=== PATIENT | female | born 1985 | race Caucasian/White ===

== ENCOUNTER 2019-09-03 16:53 | Emergency (ER) | payer BC, SELFPAY ==
[2019-09-03 17:15] VITALS: BP 135/77; PULSE 93; RESP 18; TEMP 36.9; O2SAT 99
--- NOTE | 2019-09-03 17:36 | ED.EYEPROB ---
HPI - Eye Problem General Chief complaint: Eye Problems Stated complaint: left eye red and swollen Time Seen by Provider: 09/03/19 17:36 Source: patient and RN notes reviewed Mode of arrival: ambulatory Limitations: no limitations History of Present Illness chief complaint: eye redness Related Data Home Medications Medication Instructions Recorded Confirmed Control 09/03/19 Allergies Allergy/AdvReac Type Severity Reaction Status Date / Time No Known Allergies Allergy Verified 09/03/19 17:24 Review of Systems Review of Systems: Narrative: CONSTITUTIONAL: Denies malaise, chills, sweats, or fever. EYES: Denies visual changes, redness, or discharge. ENT: Denies rhinorrhea, congestion, sinus pain, otalgia or sore throat. CARDIOVASCULAR: Denies chest pain, palpitations, or edema. RESPIRATORY: Denies cough or dyspnea. GASTROINTESTINAL: Denies abdominal pain, nausea, vomiting, diarrhea, bloody, or mucous stools. GENITOURINARY: Denies dysuria or hematuria. SKIN: Denies rash or itching. MUSCULOSKELETAL: Denies back pain, joint pain, or myalgia. NEUROLOGIC: Denies numbness, weakness, or headache. PSYCHIATRIC: Denies anxiety or depression. All systems reviewed & are unremarkable except as noted in HPI and below PMFSH Comments At time of signature, agree with nursing past medical, surgical, social and family history. There is no relevant family history pertinent to the presenting complaint Exam Narrative: Exam Narrative: GENERAL: Well-appearing, well-nourished, and in no acute distress. HEAD: Normocephalic, atraumatic. EYES: PERRLA, conjunctivae clear, and EOMI. No nystagmus. ENT: Nares clear, turbinates pink, no rhinorrhea or epistaxis. Mucous membranes moist. TM pearly saldaña with sharp light reflex bilaterally; no tragal tenderness. Oropharynx without erythema or lesions. Tonsils not enlarged and without exudate. NECK: Supple. No lymphadenopathy. No jugular venous distension, thyromegaly, or carotid bruits. Carotids were easily palpable bilaterally. CHEST: No respiratory distress. Clear to auscultation. No bony deformities, no asymmetry. Speaks in full sentences. HEART: Regular rate and rhythm. No murmur heard. Normal peripheral pulses. ABDOMEN: Soft, nontender, nondistended, normal active bowel sounds, no palpable masses. EXTREMITIES: Normal range of motion. No edema. Normal strength and sensation. SKIN: Warm, dry, no rash. NEURO: Alert and oriented x3. No focal deficits. Cranial nerves II through XII grossly intact PSYCH: Normal mood and affect Course Course Emergency Course: Patient is aware of diagnosis, understands and agrees to treatment plan. Anticipatory guidance given. Patient agrees to follow-up as directed and is aware of reasons to seek care at the emergency department. Portions of this record may have been created with voice recognition software Vital Signs Vital signs: Vital Signs Temperature 98.4 F 09/03/19 17:15 Pulse Rate 93 09/03/19 17:15 Respiratory Rate 18 09/03/19 17:15 Blood Pressure 135/77 09/03/19 17:15 Pulse Oximetry 99 09/03/19 17:15 Temperature 98.4 F 09/03/19 17:15 Pulse Rate 93 09/03/19 17:15 Respiratory Rate 18 09/03/19 17:15 Blood Pressure 135/77 09/03/19 17:15 Pulse Oximetry 99 09/03/19 17:15 Reviewed. Patient has been instructed to follow up with her primary care provider within the next week regarding her elevated blood pressure today. MDM - Eye Problem MDM Narrative Medical decision making narrative: Consideration of the following conditions may be warranted for the presenting problem, they are not final diagnoses: Bacterial conjunctivitis, allergic conjunctivitis, viral conjunctivitis, foreign body, blepharitis, chalazion, hordeolum, corneal abrasion. Exam findings show no acute concerns or changes; patient is non-toxic appearing and is in no distress. Patient is appropriate for outpatient treatment and follow-up. Critical Care Time
== END 2019-09-03 17:50 | disposition home or self-care (01) ==
PROVIDERS: Emergency Provider Nurse Practitioner
DX: H10.89 Other conjunctivitis (principal); R03.0 Elevated blood-pressure reading, without diagnosis of hypertension
CPT/HCPCS: 99213; G0463

== ENCOUNTER 2023-02-03 10:40 | Emergency (ER) | payer BC, SELFPAY ==
--- NOTE | 2023-02-03 10:44 | ED.ABDPAIN ---
HPI - Abdominal Pain General Chief Complaint: Abdominal Pain Stated Complaint: abdo pain/nausea/diarrhea Time Seen by Provider: 02/03/23 10:50 Source: patient Mode of arrival: ambulatory Limitations: no limitations History of Present Illness HPI narrative: Cassandra is a 37-year-old female patient presenting to clinic today with complaints abdominal discomfort, nausea, and diarrhea x2 days. She denies any fever or chills. States she has had exposure to COVID however she tested yesterday and she was negative. Denies any URI symptoms. Reports that she just started a colon cleanse at the beginning of this week. Last diarrhea was 730 this morning. Vomited twice yesterday. No history of constipation. Denies any urinary symptoms. Last menstrual period was 3 weeks ago. She is passing gas. Related Data Home Medications Medication Instructions Recorded Confirmed norethindrone 1 mg-ethinyl 1 tablet PO DAILY 02/03/23 02/03/23 estradiol 10 mcg (24)-iron 10 mcg(2) tablet (Lo Loestrin Fe) Allergies Allergy/AdvReac Type Severity Reaction Status Date / Time No Known Allergies Allergy Verified 02/03/23 11:00 Review of Systems Review of Systems: Pertinent positives per HPI. Patient denies any fever, chills, rash, headache, visual changes, dizziness, cough, runny nose, sore throat, shortness of breath, chest pain, palpitations, constipation, or any urinary issues. PMFSH Comments At the time of my signature, I reviewed and agree with the nursing past medical, surgical, social, and family history. There is no relevant family history pertinent to the patient complaint. Exam Narrative: General: Well-developed, well nourished, in no apparent distress. Head: Normocephalic, atraumatic. Cardio: Regular rate and rhythm, s1 and s2 normal, no murmur appreciated. Resp: Clear to auscultation bilaterally, no rhonchi, rales, wheezing or rubs. Abdomen: Soft, pliable, bowel sounds present in all quadrants, generalized tender to palpation but more so tender to the mid epigastrium, no organomegly, no CVAT tenderness. Course Course Emergency Course: Portions of this record may have been created with voice recognition software. Level of Care: Express Care Visit Vital Signs Vital signs: Vital signs reviewed MDM - Abdominal Pain MDM Narrative Medical decision making narrative: At the time of visit patient is resting comfortably on the exam table. I suspect patient has gastroenteritis. Prescription for Levsin and Zofran was sent to the pharmacy and supportive measures were discussed with the patient she voiced understanding discharge instructions and agrees to treatment plan. Differential Diagnosis Differential diagnosis: Likely abdominal pain, acute appendicitis, calculus of kidney, constipation, diverticulitis, endometriosis, gastroenteritis, pancreatitis and small bowel obstruction Discharge Plan Discharge Clinical Impression: Gastroenteritis Patient Disposition: Home, Self-Care Condition: Stable Instructions: Antibiotic Form, Gastroenteritis (ED) Additional Instructions: Take prescription medications only as prescribed-Zofran for nausea and Levsin for abdominal cramping Increase fluids and stay well hydrated Tylenol/motrin for pain/fever BRAT diet for diarrhea Clear liquids x 24 hours then advance as tolerated for nausea/vomiting Go to the ED if you develop a worsening in your condition- high fever not controlled by Tylenol or Motrin, dehydration, weakness, lethargy, shortness of breath, or chest pain. Follow up with your PCP in 3-5 days if symptoms persist. Prescriptions: New hyoscyamine sulfate [Levsin] 0.125 mg tablet 0.125 mg PO QID PRN (Reason: dyspepsia) 3 Days Qty: 12 0RF ondansetron 4 mg tablet,disintegrating 4 mg PO Q6H PRN (Reason: nausea and vomiting) 3 Days Qty: 12 0RF No Action Lo Loestrin Fe 1 mg-10 mcg (24)/10 mcg (2) tablet 1 tablet PO DAILY Follow-up/R
[2023-02-03 10:45] VITALS: BP 146/85; PULSE 98; RESP 16; TEMP 36.7; O2SAT 98
== END 2023-02-03 11:05 | disposition home or self-care (01) ==
PROVIDERS: Emergency Provider Nurse Practitioner Family
DX: K52.9 Noninfective gastroenteritis and colitis, unspecified (principal)
CPT/HCPCS: 99213; G0463

== ENCOUNTER 2025-01-03 11:47 | Emergency (ER) | payer SELFPAY ==
--- NOTE | ~2025-01-03 | XR_ITS ---
Examination: XR tibia fibula LT 2V Clinical History: garcia pain x3 days. New exercise. R/o stress fx Comparison: None Technique: 2 views left tibia and fibula Findings/impression: 1. No fracture or other acute abnormality identified. Reviewed, dictated and finalized at location R.
[2025-01-03 11:55] VITALS: BP 124/62; PULSE 104; RESP 16; TEMP 36.8; O2SAT 98
--- OUTSIDE RECORDS SUMMARY | 2025-01-03 12:31 | XMS_ITS | Encounter Summary ---
Author Organization [facility] Address [address] [place] [address] Phone Care Team Providers Care Armament Installer Name Role Phone Fam Carpenter MD Primary Care Provider [phone] Reason for Visit * Reason Comments Medication Refill Encounter Details Date Type Department Care Team (Late st Contact Info) Description 04/26/2021 Refill [facility] - Family Medicine [facility] [address] [place] [id number] Fam Carpenter MD [address] [place] [address] Medication Refill Social History Tobacco Use Types Packs/Day Years Used Date Smoking Tobacco: Former Cigarettes Smokeless Tobacco: Never Alcohol Use Standard Drinks/Week Comments Yes 0 (1 standard drink = 0.6 oz pur e alcohol) occasional PHQ-2 Answer Date Recorded Total Score - Questions 1-9 0 080 09/2019 Education Answer Date Recorded What is the highest level of school you have completed or the highest degree you have received? Associate degree: occupational, technical, or vocational program 04/27/2020 Comments No Sex and Gender Information Value Date Recorded Sex Assigned at Not on file Legal Sex Female 11:27 PM CDT Gender Identity Not on file Sexual Orientation Not on file documented as of this encounter Miscellaneous Notes * Telephone Encounter - Ana Maria Early RN - 04/26/2021 2:13 PM CST Medication failed the protocol, provider to review and approve the medication order if appropriate. Requested Prescriptions Pending Prescriptions Disp Refills levETIRAcetam (KEPPRA) 500 MG Tablet [Pharmacy Med Name: levETIRAcetam 500 MG Oral Tablet] 60 Tablet 0 Sig: Take 1 tablet by mouth twice daily Not Delegated - Anticonvulsants Excluding Benzodiazepines Protocol Failed - 04/26/2021 5:31 AM Failed - This refill cannot be delegated Passed - Visit with relevant provider in past 12 months or upcoming 90 days Recent Visits Date Type Provider Dept 04/27/20 Telemedicine Fam Carpenter MD [facility] Showing recent visits within past 365 days and meeting all other requirements Future Appointments No visits were found meeting these conditions. Showing future appointments within next 90 days and meeting all other requirements ER OPERATOR documented in this encounter Plan of Treatment Not on file documented as of this encounter Visit Diagnoses Diagnosis Nonintractable epilepsy without status epilepticus, unspecified epilepsy type documented in this encounter Additional Health Concerns Assessment Noted Time PHQ-9 Depression Total Score: 0 10/25/19 20 8:00 AM CDT documented as of this encounter Care Teams Armament Installer Relationship Specialty Start Date End Date Fam Carpenter MD PCP - General Family Medicine 10/25/19 10/05/21 documented as of this encounter
--- OUTSIDE RECORDS SUMMARY | 2025-01-03 12:31 | XMS_ITS | Encounter Summary ---
Author Organization [facility] Address [address] [place] [address] Phone Care Team Providers Care Fine Hairer Name Role Phone Fam Carpenter MD Primary Care Provider [phone] Reason for Visit * Reason Comments Medication Refill Encounter Details Date Type Department Care Team (Late st Contact Info) Description 06/26/2021 Refill [facility] - Family Medicine [facility] [address] [place] [id number] Fam Carpenter MD [address] [place] [address] Medication Refill Social History Tobacco Use Types Packs/Day Years Used Date Smoking Tobacco: Former Cigarettes Smokeless Tobacco: Never Alcohol Use Standard Drinks/Week Comments Yes 0 (1 standard drink = 0.6 oz pur e alcohol) occasional PHQ-2 Answer Date Recorded Total Score - Questions 1-9 0 09/2019 Education Answer Date Recorded What is [...] Encounter - Ana Maria Early RN - 06/28/2021 8:15 AM CDT I was going to deny these medications since patient has not been seen in over a year and she No Showed her last appointment in February however, I did not want to deny the Keppra if she needs it. Medication failed the protocol, provider to review and approve the medication order if appropriate. Requested Prescriptions Pending Prescriptions Disp Refills levETIRAcetam (KEPPRA) 500 MG Tablet [Pharmacy Med Name: levETIRAcetam 500 MG Oral Tablet] 60 Tablet 0 Sig: Take 1 tablet by mouth twice daily Not Delegated - Anticonvulsants Excluding Benzodiazepines Protocol Failed - 06/26/2021 5:30 AM Failed - This refill cannot be delegated Failed - Visit with relevant provider in past 12 months or upcoming 90 days Recent Visits No visits were found meeting these conditions. Showing recent visits within past 365 days and meeting all other requirements Future Appointments No visits were found meeting these conditions. Showing future appointments within next 90 days and meeting all other requirements gabapentin (NEURONTIN) 100 MG Capsule [Pharmacy Med Name: Gabapentin 100 MG Oral Capsule] 180 Capsule 0 Sig: TAKE 2 CAPSULES BY MOUTH THREE TIMES DAILY Not Delegated - Anticonvulsants Excluding Benzodiazepines Protocol Failed - 06/26/2021 5:30 AM Failed - This refill cannot be delegated Failed - Visit with relevant provider in past 12 months or upcoming 90 days Recent Visits No visits were found meeting these conditions. Showing recent visits within past 365 days and meeting all other requirements Future Appointments No visits were found meeting these conditions. Showing future appointments within next 90 days and meeting all other requirements documented in this encounter Plan of Treatment Not on file documented as of this encounter Visit Diagnoses Diagnosis Nonintractable epilepsy without status epilepticus, unspecified epilepsy type documented in this encounter Additional Health Concerns Assessment Noted Time PHQ-9 Depression Total Score: 0 10/25/19 20 8:00 AM CDT documented as of this encounter Care Teams Fine Hairer Relationship Specialty Start Date End Date Fam Carpenter MD PCP - General Family Medicine 10/25/19 10/05/21 documented as of this encounter
--- OUTSIDE RECORDS SUMMARY | 2025-01-03 12:31 | XMS_ITS | Clinical Summary ---
Author Organization [facility] Address [address] [place] [address] Phone Care Team Providers Care Abrasive Grinder Name Role Phone Unavailable Primary Care Provider Unavailabl e Allergies No known active allergies Medications Multiple Vitamins-Mineral s (MULTIVITAMIN PO) Take by mouth. Active Norethin-Eth Estrad-Fe Biphas 1 MG-10 MCG / 10 MCG Tablet Take by mouth. Active VITAMIN D POIndications:Vi sit for annual health examination (Adult) Take by mouth. Active gabapentin (NEURONTIN) 100 MG Capsule Take 2 Capsules by mouth 3 times daily. 180 Capsule 2 Active levETIRAcetam (KEPPRA) 500 MG TabletIndication s:Nonintractable epilepsy without status epilepticus, unspecified epilepsy type Take 1 Tablet by mouth 2 times daily. No further refills until seen, not seen in over one year 60 Tablet 2 Active Active Problems Problem Noted Date Diagnosed Date Family history of other cardiovascular diseases 04/11/2019 Overview (10/25/2019): Note: mom thyroid disorder Note: father [place] Epileptic seizure 05/16/2016 Idiopathic generalized epilepsy 10/05/2015 Fibrocystic disease of breast 02/28/2014 Overview (10/25/2019): Note: Unchanged Immunizations Immunization Administration Dates Next Due TDAP Vaccine 09/27/2015 Family History Medical History Relation Name Comments No Known Problems Brother cali Diabetes Father Cancer Maternal Grandfather throat Dementia Maternal Grandfather Chronic Obstructive Pulmonary Disease Maternal Grandmo ther Heart Disease Maternal Grandmother Bladder cancer Mother Heart Attack Paternal Grandfather Stroke Paternal Grandfather Alzheimer's Disease Paternal Grandmother No Known Problems Sister 1 nina No Known Problems Sister 2 jaimee Relation Name Status Comments Brother cali Alive Father Alive Maternal Grandfather Maternal Grandmother Mother Alive Paternal Grandfather Paternal Grandmother Alive Sister 1 nina Alive Sister 2 jaimee Alive Social History Tobacco Use Types Packs/Day Years Used Date Smoking Tobacco: Former Cigarettes Smokeless Tobacco: Never Tobacco Cessation:Counseling Given: No Alcohol Use Standard Drinks/Week Comments Yes 0 [...] on file Sexual Orientation Not on file Last Filed Vital Signs Vital Sign Reading Time Taken Comments Blood Pressure 110/64 12/25/2019 9:57 AM CDT Pulse 88 12/25/2019 9:57 AM CDT Temperature 36.4 C (97.6 F) 12/25/2019 9:57 AM CDT Respiratory Rate 16 12/25/2019 9:57 AM CDT Oxygen Saturation 98% 12/25/2019 9:57 AM CDT Inhaled Oxygen Concentration - - Weight 70.1 kg (154 lb 9.6 oz) 12/25/2019 9:57 A M CDT Height 160 cm (5' 3) 12/25/2019 9:57 AM CDT Body Mass Index 27.39 12/25/2019 9:57 AM CDT Plan of Treatment Health Maintenance Due Date Last Done Comments Hepatitis C Virus (HCV) Screening 1985 Hepatitis B Immunization (1 of 3 - 19+ 3-dose series) 2004 Influenza Immunization (#1) 2024 SARS-COV-2 Immunization () 11/18/2024 Pap Smear 06/11/2026 06/12/2023, 05/19, 06/02/2021, Additional history exists Cervical Cancer Screening (CCS) 06/11/2028 HPV/Cotest 06/11/2028 06/12/2023, 05/19, 06/02/2021 Respiratory Syncytial Virus (RSV) Immunization (Adult) (1 - 1-dose 75+ series) 2060 Human Papillomavirus (HPV) Immunization Completed 01/27/2009, 10/06/2008, 07/18/2008 DTaP/Tdap/Td Immunization Discontinued 09/27/2015 Meningococcal Immunization (ACWY) Aged Out No longer eligible based on patient's age to complete this topic Pneumococcal Immunization Combined Aged Out No longer eligible based on patient's age to complete this topic Rotavirus Immunization Aged Out No lo nger eligible based on patient's age to complete this topic Procedures Procedure Name Priority Date/Time Associated Diagnosis Comments HUMAN PAPILLOMA VIRUS (HPV) 06/12/2023 12:00 AM CDT PATHOLOGY CYTOLOGY BEHAVIOR CLINICIAN 06/12/2023 12:00 AM CDT from Last 3 Months or Most Recently Relevant to Health Maintenance Results * PATHOLOGY CYTOLOGY BEHAVIOR CLINICIAN (06/12/2023 12:00 AM CDT) 06/12/2023 us Provider Scan PATHOLOGY/CYTOLOGY ORDERABLES Fi nal Result Performing Organization Address City/[facility]/ZIP Co de Phone Number SCAN * HUMAN PAPILLOMA VIRUS (HPV) (06/12/2023 12:00 AM CDT) 06/12/2023 us Provider Scan LAB SEND OUTS Final Result SCAN from Last 3 Months or Most Recently Relevant to Health Maintenance Insurance MEDICAID [place]
--- OUTSIDE RECORDS SUMMARY | 2025-01-03 12:31 | XMS_ITS | Encounter Summary ---
Author Organization [facility] Address [address] [place] [address] Phone Care Team Providers Care Medical Detail Representative Name Role Phone Fam Carpenter MD Primary Care Provider Reason for Visit * Reason Comments Medication Refill Encounter Details Date Type Department Care Team (Late st Contact Info) Description 05/18/2020 Refill [facility] - Family Medicine [facility] [address] [place] [address] Fam Carpenter MD [address] [place] [address] Medication Refill Social History Tobacco Use Types Packs/Day Years Used Date Smoking Tobacco: Former Cigarettes Smokeless Tobacco: Never Alcohol Use Standard Drinks/Week Comments Yes 0 (1 standard drink = 0.6 oz pur e alcohol) occasional PHQ-2 Answer Date Recorded Total Score - Questions 1-9 0 0809/2019 Education Answer Date Recorded What is the highest level of school you have completed or the highest degree you have received? Associate degree: occupational, technical, or vocational program 04/27/2020 Comments No Sex and Gender Information Value Date Recorded Sex Assigned at Not on file Legal Sex Female 11:27 PM CDT Gender Identity Not on file Sexual Orientation Not on file COVID-19 Exposure Response Date Recorded In the last month, have you been in contact with someone who was confirmed or suspected to have Coronavirus / COVID-19? Yes 04/27/2020 8:23 AM SECOND RIGGER documented as of this encounter Miscellaneous Notes * Telephone Encounter - Ana Maria Early RN - 05/19/2020 9:36 AM CST Per [place] PDMP, last filled 30 days 03/09/20 Per nursing clinical judgement, provider to review and approve the medication(s) order(s) if appropriate. Requested Prescriptions Pending Prescriptions Disp Refills levETIRAcetam (KEPPRA) 500 MG Tablet [Pharmacy Med Name: levETIRAcetam 500 MG Oral Tablet] 60 Tablet 0 Sig: Take 1 tablet by mouth twice daily Neurology: Anticonvulsants Passed - 05/19/2020 9:36 AM Passed - Valid encounter within last 12 months Past Office Visits Recent Outpatient Visits 3 weeks ago Neuropathy involving both lower extremities [facility] - Fam Tang MD 4 months ago Neuropathy involving both lower extremities [facility] - Fam Tang MD 6 months ago Visit for annual health examination (Adult) [facility] - Fam Tang MD 4 years ago Vasovagal attack [facility] Rosette Stevenson PAC 5 years ago Loss of consciousness [facility] Rosette Stevenson PAC Upcoming Appointments [facility] - Recent and Past Visits Recent Visits Date Type Provider Dept 04/27/20 Telemedicine Fam Carpenter MD [facility] 12/25/19 Office Visit Fam Carpenter MD [facility] 10/25/19 Office Visit Fam Carpenter MD [facility] [place] Showing recent visits within past 460 days with a meds authorizing provider and meeting all other requirements Future Appointments No visits were found meeting these conditions. Showing future appointments within next 90 days with a meds authorizing provider and meeting all other requirements [place] RIGGER documented in this encounter Plan of Treatment Not on file documented as of this encounter Visit Diagnoses Diagnosis Nonintractable epilepsy without status epilepticus, unspecified epilepsy type documented in this encounter Additional Health Concerns Assessment Noted Time PHQ-9 Depression Total Score: 0 10/25/19 20 8:00 AM CDT documented as of this encounter Care Teams Medical Detail Representative Relationship Specialty Start Date End Date Fam Carpenter MD PCP - General Family Medicine 10/25/19 10/05/21 documented as of this encounter
--- OUTSIDE RECORDS SUMMARY | 2025-01-03 12:31 | XMS_ITS | Clinical Summary ---
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 Acti ve norethindrone-e.e stradiol-iron 1 mg-10 mcg (24)/10 mcg (2) tablet Take by mouth. Active ferrous sulfate 325 mg (65 mg of elemental iron) tabletIndications :Iron Deficiency Anemia Take 1 tablet (325 mg total) by mouth daily with breakfast Active meloxicam (MOBIC) 15 mg tabletIndications :Osteoarthritis of right foot, unspecified osteoarthritis type,Right foot sprain, initial encounter Take 1 tablet (15 mg total) by mouth daily P.r.n. pain and swelling. Take with food. Collaborating physician Aydin Younger MD 30 tablet 05/31/19 24 Active ibuprofen (ADVIL,MOTRIN) 800 mg tablet Take 1 tablet (800 mg total) by mouth 3 (three) times a day as needed for pain. Take with food. 30 tablet 10/05/19 18 025 Discontin ued(Thera py completed ) HYDROcodone-aceta minophen (NORCO) 5-325 mg per tabletIndications :Pain Take 1-2 tablets by mouth every 6 (six) hours as needed for pain (1 tablet for mild to moderate pain or 2 tablets for severe pain). 12 tablet 10/05/19 18 025 Discontin ued(Thera py completed ) levETIRAcetam (KEPPRA) 500 mg tablet 09/15/19 18 Discontin ued(Thera py completed ) ondansetron ODT (ZOFRAN-ODT) 4 mg disintegrating tablet Dissolve 1 tablet oral every 4 hours as needed for nausea or vomiting. 15 tablet 05/03/19 21 Discontin ued(Alter miriam therapy) gabapentin (NEURONTIN) 100 mg capsule 12/29/19 21 Discontin ued(Thera py completed ) ondansetron ODT (ZOFRAN-ODT) 4 mg disintegrating tablet Dissolve 1 tablet oral every 4 hours as needed for nausea or vomiting. 15 tablet 01/14/20 21 Discontin ued(Alter miriam therapy) naproxen (NAPROSYN) 500 mg tabletIndications :Nondisplaced fracture of proximal phalanx of right great toe, initial encounter for closed fracture,Contusio n of right foot, initial encounter Take 1 tablet (500 mg total) by mouth 2 (two) times a day with meals P.r.n. pain and swelling. Collaborating physician Aydin Younger MD 20 tablet 01/16/20 23 Discontin ued(Thera py completed ) traMADoL (ULTRAM) 50 mg tabletIndications :Nondisplaced fracture of proximal phalanx of right great toe, initial encounter for closed fracture,Contusio n of right foot, initial encounter Take 1 tablet (50 mg total) by mouth every 6 (six) hours P.r.n. pain not relieved by naproxen alone. Take with food. Take 500 mg to 650 mg of acetaminophen with each dose. Collaborating physician Aydin Younger MD 15 tablet 01/16/20 23 025 Discontin ued(Thera py completed ) ondansetron ODT (ZOFRAN-ODT) 4 mg disintegrating tablet Take 1 tablet (4 mg total) by mouth every 8 (eight) hours as needed for nausea or vomiting 20 tablet 12/17/19 25 025 Discontin ued(Thera py completed ) cefdinir (OMNICEF) 300 mg capsule Take 1 capsule (300 mg total) by mouth 2 (two) times a day for 5 days 10 capsule 12/20/19 25 025 Active Problems Problem Noted Date Diagnosed Date Syncope and collapse 12/17/2024 Osteoarthritis of right foot 05/31/2023 Right foot sprain, initial encounter 05/31/2023 Nondisplaced fracture of pro ximal phalanx of right great toe, initial encounter for closed fracture 01/15/2023 Overview (01/15/2023): Nondisplaced fracture involving the medial base of the great toe proximal phalanx Contusion of right foot 01/15/2023 Closed fracture of shaft of left ulna 10/09/2017 Idiopathic generalized epilepsy 10/05/2015 Encounters Date Type Department Care Team Description 12/19/2024 Documentation [facility] [address] [place] [address] Sergio Viramontes MD 12/18/2024 Documentation [facility] Warm Hand Off Program [address] [place], [place] [phone] Valery Johnson 12/17/2024 9:09 PM CDT - 12/19/2024 12:19 PM CDT Hospital Encounter [facility] IMU [address] [place] [address] Bindu Clayton MD Petters, MD Nishi Jiménez Jelena, MD Syncope and collapse (Primary Dx); Alcohol withdrawal syndrome with complication (HCC) Discharge Disposition: Discharge to home or self care 12/16/2024 3:45 PM CDT - 12/16/2024 8:00 PM CDT Emergency [facility] Emergency Department [address] [place] [address] Patricio Vallecillo MD Alcohol abuse (Primary Dx) Discharge Disposition: Discharge to home or self care 12/16/2024 3:08 PM CDT - 12/16/2024 11:59 PM CDT Hospital Encounter [facility] Emergency, Room R Discharge Disposition: Discharge to home or self care from Last 3 Months Immunizations Immunization Administration Dates Next Due HPV, Quadrivalent 01/27/2009,10/06/2008,07/19/19 09 Hep A, Ped Unspecified 09/29/2004 Tdap 09/27/2015 Medical History Medical History Date Comments Seizures (HCC) Social History Tobacco Use Types Packs/Day Years Used Date Smoking Tobacco: Former Smokeless Tobacco: Never Tobacco Cessation:Counseling Given: No Alcohol Use Standard Drinks/Week Comments Yes 10 (1 standard drink = 0.6 oz pu re alcohol) Social Connection and Isolation Panel Answer Date Recorded In a typical week, how many times do you talk on the phone with family, friends, or neighbors? More than three times a week 12/18/2024 How often do you get togethe r with friends or relatives? More than three times a week 12/18/2024 How often do you attend chur ch or shinto services? Never 12/18/2024 Do you belong to any clubs o r organizations such as scientologist groups, unions, fraternal or athletic groups, or school groups? No 12/18/2024 How often do you attend meet ings of the clubs or organizations you belong to? Never 12/18/2024 Are you , , di vorced, , never , or living with a partner? Never 12/18/2024 AUDIT-C Answer Date Recorded Q1: How often do you have a drink containing alc ohol? 2-3 times a week 12/18/2024 Q2: How many drinks containi ng alcohol do you have on a typical day when you are drinking? 5 or 6 12/18/2024 Q3: How often do you have si x or more drinks on one occasion? Weekly 12/18/2024 Overall Financial Resource Strain (CARDIA) Answe r Date Recorded How hard is it for you to pa y for the very basics like food, housing, medical care, and heating? Somewhat hard 12/18/2024 Hunger Vital Sign Answer Date Recorded Within the past 12 months, y ou worried that your food would run out before you got the money to buy more. Never true 12/19/19 25 Within the past 12 months, t he food you bought just didn't last and you didn't have money to get more. Never true 12/18/2024 PRAPARE - Transportation Answer Date Re corded In the past 12 months, has l ack of transportation kept you from medical appointments or from getting medications? No 03/2024 In the past 12 months, has l ack of transportation kept you from meetings, work, or from getting things needed for daily living? No 12/18/2024 Housing Stability Vital Sign Answer Emmanuel e Recorded In the last 12 months, was t here a time when you were not able to pay the mortgage or rent on time? No 12/18/2024 In the past 12 months, how m any times have you moved where you were living? 0 12/18/2024 At any time in the past 12 m [facility], were you homeless or living in a [place] care facility (including now)? No 12/18/2024 [facility] Utilities Answer Date Recorded In the past 12 months has th e electric, gas, oil, or water company threatened to shut off services in your home? No 12/18/2024 Personal Safety Answer Date Recorded Have you ever been in or are you currently in a harmful physical or emotional relationship or is someone making you feel afraid or unsafe? 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 Gender Identity Not on file Sexual Orientation Not on file Obstetrics History Last Filed Vital Signs Vital Sign Reading Time Taken Comments Blood Pressure 139/100 12/19/2024 7:32 AM CDT Pulse 65 12/19/2024 10:00 AM CDT Temperature 36.1 C (97 F) 12/19/2024 7:32 AM CDT Respiratory Rate 18 12/19/2024 7:32 AM CDT Oxygen Saturation 96% 12/19/2024 7:32 AM CDT Inhaled Oxygen Concentration - - Weight 57 kg (125 lb 10.6 oz) 12/18/2024 12:30 A M CDT Height 165.1 cm (5' 5) 12/18/2024 12:30 AM CDT Body Mass Index 20.91 12/18/2024 12:30 AM CDT Plan of Treatment Health Maintenance Due Date Last Done Comments Cervical Cancer Screening 1985 Depression Screening 1985 Varicella Vaccines (1 of 2 - 13+ 2-dose series) 1998 Hepatitis B Screening 10/16/2003 Regular Well Visit/Exam 18-64 10/16/2003 Influenza Vaccine (#1) 2024 DTaP/Tdap/Td Vaccine (2 - Td or Tdap) 09/26/2025 09/27/2015 HPV Vaccines Completed 01/27/2009, 10/06/2008, 07/18/2008 Hepatitis C Screening Completed 12/18/2024 Pneumococcal vaccine <65 Aged Out No longer eligible based on patient's age to complete this topic Procedures Procedure Name Priority Date/Time Associated Diagnosis Comments POCT GLUCOSE DEVICE Routine 12/19/2024 1 1:36 AM CDT EGFR Routine 12/19/2024 3:40 AM CDT DIFFERENTIAL AUTO Routine 12/19/2024 3:4 0 AM CDT CBC WITH AUTO DIFFERENTIAL Routine 12/19/2024 3:40 AM CDT COMPREHENSIVE METABOLIC PANEL Routine 12/19/2024 3:40 AM CDT TRANSTHORACIC ECHO (TTE) COMPLETE W DOPPLER/CF WO CONTRAST Routine 12/18/2024 11:20 AM CDT EEG Routine 12/18/2024 11:07 AM CDT TROPONIN T HIGH-SENSITIVITY 6-HOUR Timed 12/18/2024 4:00 AM CDT EGFR Routine 12/18/2024 2:11 AM CDT DIFFERENTIAL AUTO Routine 12/18/2024 2:1 1 AM CDT MAGNESIUM Routine 12/18/2024 2:11 AM CDT COMPREHENSIVE METABOLIC PANEL Routine 12/18/2024 2:11 AM CDT CBC WITH AUTO DIFFERENTIAL Routine 12/18/2024 2:11 AM CDT TROPONIN T HIGH-SENSITIVITY 4-HR Timed 12/18/2024 2:11 AM CDT HEPATITIS PANEL, ACUTE Routine 12/18/2024 2:[address] CHEST PE ABDOMEN PELVIS W CONTRAST ED Urgent/IP Urgent 12/18/2024 1:12 AM CDT URINALYSIS, MICROSCOPIC ONLY STAT 12/17/2024 10:24 PM CDT DRUGS OF ABUSE SCREEN, URINE WITHOUT CONFIRMATION STAT 12/17/2024 10:24 PM CDT URINE CULTURE STAT 12/17/2024 10:24 PM CDT URINALYSIS AND REFLEX TO MICROSCOPIC AND CULTURE STAT 12/17/2024 10:24 PM CDT ECG 12-LEAD STAT 12/17/2024 10:13 PM CDT TROPONIN T HIGH-SENSITIVITY SERIES (BASELINE, 2HR, 4HR, 6HR) Add-On 12/17/2024 9:41 PM CDT THYROID FUNCTION CASCADE Routine 12/17/2024 9:41 PM CDT LIPASE STAT 12/17/2024 9:41 PM CDT SEPSIS LACTATE WITH REFLEX STAT 12/17/2024 9:41 PM CDT INFLUENZA A/B, RSV, AND COVID-19 PCR STAT 12/17/2024 9:[address] HEAD WO CONTRAST ED 12/17/2024 8 :25 PM CDT POCT GLUCOSE DEVICE Routine 12/17/2024 6 :09 PM CDT MAGNESIUM Add-On 12/17/2024 5:18 PM CDT ETHANOL Add-On 12/17/2024 5:18 PM CDT EGFR STAT 12/17/2024 5:18 PM CDT DIFFERENTIAL AUTO STAT 12/17/2024 5:1 8 PM CDT COMPREHENSIVE METABOLIC PANEL STAT 12/17/2024 5:18 PM CDT CBC WITH AUTO DIFFERENTIAL STAT 12/17/2024 5:18 PM CDT ECG 12-LEAD STAT 12/17/2024 5:[address] HEAD WO CONTRAST ED 12/16/2024 5 :51 PM CDT ECG 12-LEAD STAT 12/16/2024 4:40 PM CDT EGFR STAT 12/16/2024 4:40 PM CDT DIFFERENTIAL AUTO STAT 12/16/2024 4:4 0 PM CDT ETHANOL Add-On 12/16/2024 4:40 PM CDT HCG, URINE, QUALITATIVE STAT 12/16/2024 4:40 PM CDT DRUGS OF ABUSE SCREEN, URINE WITHOUT CONFIRMATION STAT 12/16/2024 4:40 PM CDT COMPREHENSIVE METABOLIC PANEL STAT 12/16/2024 4:40 PM CDT CBC WITH AUTO DIFFERENTIAL STAT 12/16/2024 4:40 PM CDT URINALYSIS AND REFLEX TO MICROSCOPIC AND CULTURE STAT 12/16/2024 4:40 PM CDT from Last 3 Months Results * POCT glucose (12/19/2024 11:36 AM CDT) Glucose, POC 77 70 - 199 mg/dL Blood 12/19/2024 11:3 6 AM CDT 12/19/2024 11:36 AM CDT us Ashleigh Mesa MD LAB POCT ORDERABLES - DEVICE F inal Result Performing Organization Address City/[facility] Co de Phone Number JB [facility]Z ([place]) [address] [facility] [facility] [employer] [place] [address] * eGFR (12/19/2024 3:40 AM CDT) eGFR >90 >=60 mL/min/1. 73 m2 Comment: Interpretive Data Reference Interval Normal >/= 90 mL/min/1.73m2 Mildly decreased* 60 - 89 mL/min/1.73m2 Mildly to moderately decreased 45 - 59 mL/min/1.73m2 Moderately to severely decreased 30 - 44 mL/min/1.73m2 Severely decreased 15 - 29 mL/min/1.73m2 Kidney Failure < 15 mL/min/1.73m2 *Relative to young adult level Estimated glomerular filtration rate is determined by the 2020 CKD-EPI equation recommended by the National Kidney Foundation (A Unifying Approach to GFR Estimation: Recommendations of the NKF-ASK Task Force on Reassessing the Inclusion of Race in Diagnosing Kidney Disease, JASN 2020). The CKD-EPI equation should not be used for patients with unstable renal function and has not been validated in children and those over 70. Current interpretive data was last reviewed 2021. Blood 12/19/2024 3:40 AM CDT 12/19/2024 4:37 AM CDT us Jay Sykes MD LAB BLOOD ORDERABLES Fi nal Result Performing Organization Address City/[facility]/ZIP Co de Phone Number JB [facility] ([place]) [address] [facility] [place] [address] * Differential, auto (12/19/2024 3:40 AM CDT) Neutrophil abs 2.97 1.50 - 6.50 K/cumm Imm gran abs 0.01 0.00 - 0.10 K/cumm [facility] ([place]) Lymphocyte abs 2.74 0.80 - 3.30 K/cumm [facility] ([place]) Monocyte abs 0.58 0.20 - 0.80 K/cumm [facility] ([place]) Eosinophil abs 0.19 0.00 - 0.50 K/cumm [facility] ([place]) Basophil abs 0.05 0.00 - 0.10 K/cumm [facility] ([place]) Neutrophil pct 45.3 % [facility] ([place]) Comment: Interpretive Data Percent cell count reference ranges are not reported, since discordance with absolute values may lead to misinterpretation of CBC data. Current Interpretive Data was last revised on 2017. Imm gran pct 0.2 % [facility] ([place]) Comment: Interpretive Data Percent cell count reference ranges are not reported, since discordance with absolute values may lead to misinterpretation of CBC data. Current Interpretive Data was last revised on 2017. Lymphocyte pct 41.9 % [facility] ([place]) Comment: Interpretive Data Percent cell count reference ranges are not reported, since discordance with absolute values may lead to misinterpretation of CBC data. Current Interpretive Data was last revised on 2017. Monocyte pct 8.9 % [facility] ([place]) Comment: Interpretive Data Percent cell count reference ranges are not reported, since discordance with absolute values may lead to misinterpretation of CBC data. Current Interpretive Data was last revised on 2017. Eosinophil pct 2.9 % [facility] ([place]) Comment: Interpretive Data Percent cell count reference ranges are not reported, since discordance with absolute values may lead to misinterpretation of CBC data. Current Interpretive Data was last revised on 2017. Basophil pct 0.8 % [facility] ([place]) Comment: Interpretive Data Percent cell count reference ranges are not reported, since discordance with absolute values may lead to misinterpretation of CBC data. Current Interpretive Data was last revised on 2017. Blood 12/19/2024 3:40 AM CDT 12/19/2024 4:37 AM CDT us Jay Sykes MD LAB BLOOD ORDERABLES Fi nal Result [facility] ([place]) [address] [facility] [place] [address] * (ABNORMAL) CBC with auto differential (12/19/2024 3:40 AM CDT) [facility] WBC 6.54 3.80 - 9.90 K/cumm Hgb 11.9 11.9 - 15.5 g/dL [facility] ([place]) Hct 35.9 35.6 - 45.5 % [facility] ([place]) Plt 128(L) 150 - 400 K/cumm [facility] ([place]) MPV 10.9 9.1 - 12.3 fL [facility] ([place]) RBC 3.43(L) 3.90 - 5.20 M/cumm [facility] ([place]) MCV 104.7(H) 81.3 - 96.4 fL [facility] ([place]) MCH 34.7(H) 27.1 - 33.3 pg [facility] ([place]) MCHC 33.1 32.3 - 35.7 g/dL [facility] ([place]) RDW CV 12.3 11.1 - 14.9 % [facility] ([place]) RDW SD 47.5 35.7 - 48.1 fL [facility] ([place]) NRBC abs 0.00 0.00 - 0.01 K/cumm [facility] ([place]) Blood 12/19/2024 3:40 AM CDT 12/19/2024 4:37 AM CDT us Jay Sykes MD LAB BLOOD ORDERABLES Fi nal Result [facility] ([place]) [address] [facility] Department [place] [address] * (ABNORMAL) Comprehensive metabolic panel (12/19/2024 3:40 AM CDT) [facility] Sodium 141 135 - 145 mmol/L [facility] ([place]) Potassium, pl 3.9 3.3 - 4.9 mmol/L [facility]) Chloride 108 97 - 110 mmol/L [facility]) CO2 24 22 - 32 mmol/L [facility] ([place]) Anion gap 9 2 - 15 mmol/L [facility] ([place]) BUN 4(L) 6 - 25 mg/dL [facility] ([place]) Creatinine 0.72 0.60 - 1.10 mg/dL [facility] ([place]) Glucose 66(L) 70 - 199 mg/dL [facility] ([place]) Comment: Interpretive Data Fasting glucose >/= 126 mg/dl is diagnostic for diabetes. Fasting is defined as no caloric intake for at least 8 hours. Fasting glucose between 100 mg/dl to 125 mg/dl is diagnostic of prediabetes. In a patient with classic symptoms of hyperglycemia or hyperglycemic crisis, a random glucose >/= 200 mg/dl is diagnostic for diabetes. In the absence of unequivocal hyperglycemia, results should be confirmed by repeat testing. The classification and Diagnosis of Diabetes Diabetes Care 202; 46: S19-S40. Current interpretive data was last revised 2022. Calcium 8.9 8.5 - 10.3 mg/dL [facility]) Bilirubin, total 0.9 0.1 - 1.2 mg/dL [facility] ([place]) Protein, pl 5.8(L) 6.5 - 8.5 g/dL [facility] ([place]) Albumin 3.6 3.5 - 5.0 g/dL [facility] ([place]) Alk phos 95 40 - 130 Units/L [facility] ([place]) ALT 62(H) 7 - 45 Units/L [facility] ([place]) AST 74(H) 10 - 45 Units/L [facility] ([place]) Blood 12/19/2024 3:40 AM CDT 12/19/2024 4:37 AM CDT us Jay Sykes MD LAB BLOOD ORDERABLES Fi nal Result [facility] ([place]) [address] [facility] [place] [address] * TRANSTHORACIC ECHO (TTE) COMPLETE W DOPPLER/CF WO CONTRAST (12/18/2024 11:20 AM CDT) Estimated EF 55-60 % CONS SCIMAGE Anatomical Region Laterality Modality Ultrasound 12/18/2024 11:3 4 AM CDT Narrative 12/18/2024 12:27 PM CDT [address] [place] [address] Echocardiogram Report Patient Name: MEL BASSETT : 1985 Study Date: 12/18/2024 11:34:31 AM Sex: F Tech: ARMOND Location: [id number] Ref Provider: ASHLEIGH MESA Height(Cm): BSA: Weight(Kg): Quality: Adequate Order Provider: ASHLEIGH MESA PROCEDURES: Echocardiographic Report: Transthoracic echocardiogram with complete 2D, M-Mode, and color Doppler examination. INDICATIONS: Syncope. MEASUREMENTS: 2D/MM Value Range Doppler Value Range EF Teich MM 68.0 % [ 54.0 - 74.0 ] MICAELA Vmax 3.34 cm2 Estimated EF 55-60 % AV Mean PG 2 mmHg LVIDd MM 2.80 cm [ 3.80 - 5.20 ] AV Peak James 0.89 m/s [ 1.00 - 1.70 ] LVIDs MM 1.80 cm [ 2.20 - 3.50 ] AV VTI 19.12 cm LVPWd MM 1.30 cm [ 0.60 - 0.90 ] LVOT Diam 2.04 cm IVSd MM 1.30 cm [ 0.60 - 0.90 ] LVOT Peak James 0.91 m/s [ 0.70 - 1.10 ] LA Dimension MM 2.06 cm [ 2.70 - 3.80 ] LVOT VTI 19.12 cm AoR Diam MM 2.90 cm [ 2.70 - 3.70 ] MV E Peak James 0.81 m/s [ 0.60 - 1.30 ] ACS MM 1.78 cm MV A Peak James 0.62 m/s [ 1.00 - 1.20 ] MV Mean PG 1 mmHg MV PHT 54 msec [ 20 - 100 ] MVA 4.10 MV Decel Time 185 msec [ 104 - 258 ] PV Peak James 0.63 m/s [ 0.40 - 0.80 ] IN Peak James 0.69 m/s TR Peak James 1.90 m/s [ 1.00 - 2.80 ] TR Peak PG 15 mmHg RVSP 23.00 mmHg [ 10.00 - 36.00 ] E` 0.10 m/s E/E` 8.13 [ <= 10.00 ] PA Pressure 23.00 mmHg [ 10.00 - 36.00 ] 2D/MM Value Range Doppler Value Range - FINDINGS: Atrial Septum: Normal atrial septum. Left Ventricle: Normal left ventricular systolic function with no focal wall motion abnormalities. Normal left ventricular size. Mild concentric left ventricular hypertrophy. Normal left ventricular diastolic function. Ejection Fraction is estimated to be 55-60 %. Left Atrium: The left atrium is normal in size. Right Ventricle: Normal right ventricular size. Normal right ventricular systolic function. Right Atrium: The right atrium is normal in size. Aortic Valve: Normal structure of the aortic valve. Mitral Valve: Normal structure of the mitral valve. Pulmonic Valve: Normal structure of the pulmonic valve. Tricuspid Valve: Normal right ventricular systolic pressure. Estimated peak RVSP is 25 mmHg. Mild tricuspid regurgitation. Pericardium: Normal pericardium with no significant pericardial effusion. Aorta: Normal aortic root. Sinus of Valsalva is normal. Aortic arch is normal. Descending aorta is normal. IVC: Normal size and normal respiratory collapse consistent with normal right atrial pressure (<5 mmHg). Pulmonary Artery: Normal pulmonary artery size. CONCLUSIONS: Normal left ventricular systolic function with no focal wall motion abnormalities. Normal left ventricular size. Mild concentric left ventricular hypertrophy. Normal left ventricular diastolic function. Ejection Fraction is estimated to be 55-60 %. Normal right ventricular systolic pressure. Estimated peak RVSP is 25 mmHg. Mild tricuspid regurgitation. Electronically Signed By: Germain Richards MD 12/18/2024 12:26:33 PM CDT Procedure Note Germain Richards MD - 12/18/[address] [place] [address] Echocardiogram Report Patient Name: MEL BASSETT : 1985 Study Date: 12/18/2024 11:34:31 AM Sex: F Tech: Location: [id number] Ref Provider: ASHLEIGH MESA Height(Cm): BSA: Weight(Kg): Quality: Adequate Order Provider: ASHLEIGH MESA PROCEDURES: Echocardiographic Report: Transthoracic echocardiogram with complete 2D, M-Mode, and color Dopplerexamination. INDICATIONS: Syncope. MEASUREMENTS: 2D/MM Value Range Doppler ValueRange EF Teich MM 68.0 % [ 54.0 - 74.0 ] MICAELA Vmax 3.34cm2 Estimated EF 55-60 % AV Mean PG 2 mmHg LVIDd MM 2.80 cm [ 3.80 - 5.20 ] AV Peak James 0.89 m/s[ 1.00 - 1.70 ] LVIDs MM 1.80 cm [ 2.20 - 3.50 ] AV VTI 19.12cm LVPWd MM 1.30 cm [ 0.60 - 0.90 ] LVOT Diam 2.04cm IVSd MM 1.30 cm [ 0.60 - 0.90 ] LVOT Peak James 0.91 m/s[ 0.70 - 1.10 ] LA Dimension MM 2.06 cm [ 2.70 - 3.80 ] LVOT VTI 19.12cm AoR Diam MM 2.90 cm [ 2.70 - 3.70 ] MV E Peak James 0.81 m/s[ 0.60 - 1.30 ] ACS MM 1.78 cm MV A Peak James 0.62 m/s[ 1.00 - 1.20 ] MV Mean PG 1 mmHg MV PHT 54 msec [ 20 - 100 ] MVA 4.10 MV Decel Time 185 msec [ 104 - 258 ] PV Peak James 0.63 m/s [ 0.40 - 0.80 ] IN Peak James 0.69 m/s TR Peak James 1.90 m/s [ 1.00 - 2.80 ] TR Peak PG 15 mmHg RVSP 23.00 mmHg [ 10.00 - 36.00 ] E` 0.10 m/s E/E` 8.13 [ <= 10.00 ] PA Pressure 23.00 mmHg [ 10.00 - 36.00 ] 2D/MM Value Range Doppler ValueRange - FINDINGS: Atrial Septum: Normal atrial septum. Left Ventricle: Normal left ventricular systolic function with no focal wall motionabnormalities. Normal left ventricular size. Mild concentric left ventricular hypertrophy.Normal left ventricular diastolic function. Ejection Fraction is estimated to be 55-60%. Left Atrium: The left atrium is normal in size. Right Ventricle: Normal right ventricular size. Normal right ventricular systolicfunction. Right Atrium: The right atrium is normal in size. Aortic Valve: Normal structure of the aortic valve. Mitral Valve: Normal structure of the mitral valve. Pulmonic Valve: Normal structure of the pulmonic valve. Tricuspid Valve: Normal right ventricular systolic pressure. Estimated peak RVSP is 25mmHg. Mild tricuspid regurgitation. Pericardium: Normal pericardium with no significant pericardial effusion. Aorta: Normal aortic root. Sinus of Valsalva is normal. Aortic arch is normal.Descending aorta is normal. IVC: Normal size and normal respiratory collapse consistent with normal rightatrial pressure (<5 mmHg). Pulmonary Artery: Normal pulmonary artery size. CONCLUSIONS: Normal left ventricular systolic function with no focal wall motionabnormalities. Normal left ventricular size. Mild concentric left ventricular hypertrophy.Normal left ventricular diastolic function. Ejection Fraction is estimated to be 55-60%. Normal right ventricular systolic pressure. Estimated peak RVSP is 25mmHg. Mild tricuspid regurgitation. Electronically Signed By: Germain Richards MD 12/18/2024 12:26:33 PM CDT us Ashleigh Mesa MD CV ECHO PROCEDURES Final Resul t * EEG (12/18/2024 11:07 AM CDT) Anatomical Region Laterality Modality Other Impressions 12/18/2024 11:07 AM CDT History: This is a 39 years old female patient being evaluated for seizure disorder. The condition of the patient during the tracing was reported to be awake and drowsy. The quality of study is compromised bilateral frontal and parietal artifact. The background activity consisted of alpha activity of moderate amplitude. There was no epileptiform discharges seen in this tracing. EKG showed regular rate and rhythm. Impressions: This is a limited study because of excessive artifact over bilateral frontal and parietal regions. Based on limited study, there was no obvious epileptiform discharge. The clinical correlation is recommended. 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 Trop T hs delta 1 ng/L [facility] ([place]) Trop T hs interp Insignificant [facility] ([place]) Blood 12/18/2024 4:00 AM CDT 12/18/2024 5:22 AM CDT us Bindu Clayton MD LAB BLOOD ORDERABLES Ev l Result [facility] ([place]) 1 [facility] Department of Laboratories [place], [place] [id number] * Troponin T high-sensitivity 4-hour (12/18/2024 2:11 AM CDT) Trop T hs 7 <=14 ng/L [facility] ([place]) Comment: Interpretive Data For further hscTnT resources including the diagnostic algorithm and an aid in interpretation, copy and paste this link: https://nrl.testcatalog.org/show/hsTrop Current Interpretive Data last revised 2020. Trop T hs delta 1 ng/L [facility] ([place]) Trop T hs interp Insignificant [facility] ([place]) Blood 12/18/2024 2:11 AM CDT 12/18/2024 2:55 AM CDT Bindu Clayton MD LAB BLOOD ORDERABLES Ev l Result [facility] ([place]) 1 [facility] [place] [address] * eGFR (12/18/2024 2:11 AM CDT) eGFR >90 >=60 mL/min/1. 73 m2 Comment: Interpretive Data Reference Interval Normal >/= 90 mL/min/1.73m2 Mildly decreased* 60 - 89 mL/min/1.73m2 Mildly to moderately decreased 45 - 59 mL/min/1.73m2 Moderately to severely decreased 30 - 44 mL/min/1.73m2 Severely decreased 15 - 29 mL/min/1.73m2 Kidney Failure < 15 mL/min/1.73m2 *Relative to young adult level Estimated glomerular filtration rate is determined by the 2020 CKD-EPI equation recommended by the National Kid[employer] (A Unifying Approach to GFR Estimation: Recommendations of the NKF-ASK Task Force on Reassessing the Inclusion of Race in Diagnosing Kidney Disease, JASN 2020). The CKD-EPI equation should not be used for patients with unstable renal function and has not been validated in children and those over 70. Current interpretive data was last reviewed 2021. Blood 12/18/2024 2:11 AM CDT 12/18/2024 2:55 AM CDT Bindu Clayton MD LAB BLOOD ORDERABLES Ev l Result [facility] ([place]) 1 [facility] [place] [address] * Differential, auto (12/18/2024 2:11 AM CDT) Neutrophil abs 3.65 1.50 - 6.50 K/cumm Imm gran abs 0.01 0.00 - 0.10 K/cumm [facility] ([place]) Lymphocyte abs 2.20 0.80 - 3.30 K/cumm [facility] ([place]) Monocyte abs 0.61 0.20 - 0.80 K/cumm [facility] ([place]) Eosinophil abs 0.20 0.00 - 0.50 K/cumm [facility] ([place]) Basophil abs 0.07 0.00 - 0.10 K/cumm [facility] ([place]) Neutrophil pct 54.2 % [facility] ([place]) Comment: Interpretive Data Percent cell count reference ranges are not reported, since discordance with absolute values may lead to misinterpretation of CBC data. Current Interpretive Data was last revised on 2017. Imm gran pct 0.1 % [facility] ([place]) Comment: Interpretive Data Percent cell count reference ranges are not reported, since discordance with absolute values may lead to misinterpretation of CBC data. Current Interpretive Data was last revised on 2017. Lymphocyte pct 32.6 % [facility] ([place]) Comment: Interpretive Data Percent cell count reference ranges are not reported, since discordance with absolute values may lead to misinterpretation of CBC data. Current Interpretive Data was last revised on 2017. Monocyte pct 9.1 % [facility] ([place]) Comment: Interpretive Data Percent cell count reference ranges are not reported, since discordance with absolute values may lead to misinterpretation of CBC data. Current Interpretive Data was last revised on 2017. Eosinophil pct 3.0 % [facility] ([place]) Comment: Interpretive Data Percent cell count reference ranges are not reported, since discordance with absolute values may lead to misinterpretation of CBC data. Current Interpretive Data was last revised on 2017. Basophil pct 1.0 % [facility] ([place]) Comment: Interpretive Data Percent cell count reference ranges are not reported, since discordance with absolute values may lead to misinterpretation of CBC data. Current Interpretive Data was last revised on 2017. Blood 12/18/2024 2:11 AM CDT 12/18/2024 2:54 AM CDT Bindu Clayton MD LAB BLOOD ORDERABLES Ev l Result [facility] ([place]) 1 [facility] [place] [address] * (ABNORMAL) CBC with auto differential (12/18/2024 2:11 AM CDT) WBC 6.74 3.80 - 9.90 K/cumm Hgb 11.8(L) 11.9 - 15.5 g/dL [facility] ([place]) Hct 34.5(L) 35.6 - 45.5 % [facility] ([place]) Plt 132(L) 150 - 400 K/cumm [facility] ([place]) MPV 10.6 9.1 - 12.3 fL [facility] ([place]) RBC 3.44(L) 3.90 - 5.20 M/cumm [facility] ([place]) MCV 100.3(H) 81.3 - 96.4 fL [facility] ([place]) MCH 34.3(H) 27.1 - 33.3 pg [facility] ([place]) MCHC 34.2 32.3 - 35.7 g/dL [facility] ([place]) RDW CV 12.3 11.1 - 14.9 % [facility] ([place]) RDW SD 44.8 35.7 - 48.1 fL [facility] ([place]) NRBC abs 0.00 0.00 - 0.01 K/cumm [facility] ([place]) Blood 12/18/2024 2:11 AM CDT 12/18/2024 2:54 AM CDT Bindu Clayton MD LAB BLOOD ORDERABLES Ev l Result Performing Organization Address City/[facility]/ZIP Co de Phone Number [facility] ([place]) 1 [facility] [place] [address] * Hepatitis panel, acute Blood (12/18/2024 2:11 AM CDT) [facility] Hep A IgM Nonreactive Nonreactive Comment: Interpretive Data: If Hep A IgM Ab is reported as Equivocal, a new sample should be drawn in two weeks for testing. Current interpretive data was last revised on 19. Testing performed by: [address] [address] Hep B core IgM Nonreactive Nonreactive [facility] ([place]) Comment: Interpretive Data If HepB Core IgM Ab is reported as Equivocal, a new sample should be drawn in two weeks for testing. Current interpretive data was last revised on 19. Testing performed by: [address] [address] Hep C Ab Nonreactive Nonreactive [facility] ([place]) Comment: Interpretive Data Nonreactive: Antibodies to HCV not detected. Does NOT exclude the possibility of recent exposure to HCV. Equivocal: Equivocal for HCV antibodies. Supplemental molecular testing will be automatically performed to determine infection status in accordance with current CDC screening recommendations. Reactive: Positive for HCV antibodies. This may represent current or past HCV infection. Supplemental molecular testing will be automatically performed to determine current infection status in accordance with current CDC screening recommendations. Interpretive data was last revised on 2019. Testing performed by: [address] [address] HepBsAg Nonreactive Nonreactive [facility] ([place]) Comment:Testing performed by : [address] [address] Blood 12/18/2024 2:11 AM CDT 12/18/2024 9:26 AM CDT us Jay Syeks MD LAB MICROBIOLOGY - [facility] ORDERABLES Final Result [facility] ([place]) 1 [facility] Department [place] [address] * Magnesium (12/18/2024 2:11 AM CDT) Magnesium 2.2 1.4 - 2.5 mg/dL [facility] ([place]) Blood 12/18/2024 2:11 AM CDT 12/18/2024 2:55 AM CDT Bindu Clayton MD LAB BLOOD ORDERABLES Ev marc Result [facility] ([place]) 1 [facility] Department [place] [address] * (ABNORMAL) Comprehensive metabolic panel (12/18/2024 2:11 AM CDT) Sodium 135 135 - 145 mmol/L [facility] ([place]) Potassium, pl 3.2(L) 3.3 - 4.9 mmol/L [facility] ([place]) Chloride 100 97 - 110 mmol/L [facility] ([place]) CO2 22 22 - 32 mmol/L [facility] ([place]) Anion gap 13 2 - 15 mmol/L [facility] ([place]) BUN 5(L) 6 - 25 mg/dL [facility] ([place]) Creatinine 0.68 0.60 - 1.10 mg/dL [facility] ([place]) Glucose 118 70 - 199 mg/dL [facility] ([place]) Comment: Interpretive Data Fasting glucose >/= 126 mg/dl is diagnostic for diabetes. Fasting is defined as no caloric intake for at least 8 hours. Fasting glucose between 100 mg/dl to 125 mg/dl is diagnostic of prediabetes. In a patient with classic symptoms of hyperglycemia or hyperglycemic crisis, a random glucose >/= 200 mg/dl is diagnostic for diabetes. In the absence of unequivocal hyperglycemia, results should be confirmed by repeat testing. The classification and Diagnosis of Diabetes Diabetes Care 2021; 46: S19-S40. Current interpretive data was last revised 2022. Calcium 8.6 8.5 - 10.3 mg/dL [facility] ([place]) Bilirubin, total 1.3(H) 0.1 - 1.2 mg/dL [facility] ([place]) Protein, pl 6.0(L) 6.5 - 8.5 g/dL [facility] ([place]) Albumin 3.8 3.5 - 5.0 g/dL [facility] ([place]) Alk phos 92 40 - 130 Units/L [facility] ([place]) ALT 78(H) 7 - 45 Units/L [facility] ([place]) AST 99(H) 10 - 45 Units/L [facility] ([place]) Blood 12/18/2024 2:11 AM CDT 12/18/2024 2:55 AM CDT Bindu Clayton MD LAB BLOOD ORDERABLES Ev l Result [facility] ([place]) 1 [facility] Department [place] [address] * CT Chest PE (CTA) Abdomen Pelvis W Contrast (12/18/2024 1:12 AM CDT) Anatomical Region Laterality Modality Body N/A Computed Tomogra phy 12/18/2024 6:31 AM CDT Narrative 12/18/2024 6:48 AM CDT EXAM DESCRIPTION: CT CHEST PE (CTA) ABDOMEN PELVIS W CONTRAST REASON FOR STUDY: Syncope, collapse, abnormal LFTs, elevated lipase, elevated total bilirubin, Patient presents status post becoming unresponsive on her sofa this evening, patient denied chest pain, shortness of breath, abdominal pian, nausea, vomiting or any other complaints at this time. TECHNIQUE: CT angiogram of the chest with routine abdomen and pelvis performed with intravenous and without oral contrast using helical scanning technique with dynamic intravenous contrast injection. Reconstructed coronal and sagittal MPR images reviewed. All images stored on PACS. 3D MIP images of the chest rendered on scanning unit and reviewed at time of interpretation. Automated exposure control was used as a dose optimization technique for this examination. CONTRAST TYPE/DOSE: 100mL of IOVERSOL 350 MG IODINE/ML INTRAVENOUS SYRINGE injected via intravenous COMPARISON: 01/12/2021, 05/03/2020 FINDINGS: CHEST CHEST VASCULATURE: No acute pulmonary embolus. The thoracic aorta is normal in caliber without dissection. Main pulmonary trunk normal in caliber. LUNGS: Minimal emphysematous changes at the apices. There is no pneumonic consolidation. No suspicious pulmonary nodule. The central airways are patent. Minimal bronchial wall thickening is suggested. Correlate with any current symptoms of bronchitis. PLEURA: No effusion. No pneumothorax. MEDIASTINUM/BARRETT: The visualized thyroid gland is unremarkable. There is no mediastinal or hilar lymphadenopathy. Mild thickening of the distal esophagus. Correlate clinically with regards to reflux or esophagitis. HEART: The heart is normal in size without pericardial effusion. AXILLA: No adenopathy. CHEST WALL: No masses. No subcutaneous air. HARDWARE/LINES/TUBES: None. MUSCULOSKELETAL CHEST: There is subtle concavity of the superior endplate of T5, chronic in appearance. There is no acute osseous abnormality ABDOMEN/PELVIS LIVER: There is hepatomegaly. There is diffuse hepatic steatosis. There is no suspicious hepatic lesion. GALLBLADDER: The gallbladder is normal in caliber. Borderline thickening of the gallbladder wall. No densely calcified stone. Ultrasound can be utilized for further evaluation. BILE DUCTS: No intrahepatic or extrahepatic ductal dilatation. SPLEEN: Normal size. No focal lesions. PANCREAS: No peripancreatic inflammatory process or fluid collection. No pancreatic mass. No ductal dilatation. Correlate with laboratory values which are more sensitive. ADRENALS: Unremarkable. KIDNEYS/URINARY TRACT: Kidneys enhance symmetrically. No suspicious cystic or solid mass. Erica metric hypodensities, too small to characterize. No hydronephrosis or hydroureter. The urinary bladder is unremarkable. GI: The stomach is similar in configuration compared to the prior examination. There is mild thickening of the duodenal, most evident within the 2nd portion. Correlate clinically with regards to duodenitis. Small bowel loops are within normal limits in caliber. There is no obstruction. The appendix is normal. The colon is normal in caliber. There is diverticulosis, without diverticulitis. Portions of the left hemicolon are decompressed which limits evaluation. PERITONEUM: There is no free intraperitoneal air. There is no free fluid. No mesenteric lymphadenopathy. RETROPERITONEUM: There is no retroperitoneal mass or adenopathy. REPRODUCTIVE: The uterus is anteverted. There is either a septated cystic lesion or adjacent cysts within the left ovary, measuring up to 1.9 cm in size on axial image 119. The left ovary has had a similar appearance on prior examinations. There is prominence of vascularity within the left adnexa enlargement of the left gonadal vein, as can be seen with pelvic congestion. Within the right adnexa, there is a fat containing lesion lesion measuring 2.8 x 2.5 cm on axial image number 121. On the prior examination there was a 8 cm lesion containing fat, soft tissue and calcification compatible with a dermoid. The calcification present on the prior study is not visualized on the current examination. Correlate with interval surgery. VASCULATURE ABDOMEN: Abdominal aorta is normal in caliber. MUSCULOSKELETAL ABDOMEN PELVIS: No acute osseous abnormality. OTHER: No significant abnormality. IMPRESSION: 1. No CT evidence of pulmonary embolus. 2. No consolidation, effusion or pneumothorax. 3. Mild thickening of the distal esophagus. Correlate clinically with regards to reflux or esophagitis. 4. Mild thickening of the duodenum. Correlate clinically with regards to duodenitis. 5. Hepatomegaly and diffuse hepatic steatosis. 6. Borderline thickening of the gallbladder wall. No densely calcified stone. No adjacent inflammation.. Ultrasound can be utilized for further evaluation if warranted clinically. 7. No CT evidence of pancreatitis. Correlate with laboratory values. 8. Fat containing lesion within the right adnexa measuring up to 2.8 cm. A dermoid measuring up to 8 cm was present on the prior study in 2020. That lesion contains a calcification. There is no calcification demonstrated in the current lesion. Correlate with any interval surgery. Pelvic ultrasound can be considered as warranted clinically for further evaluation. 9. Septated cystic lesion versus adjacent cysts within the left ovary, measuring up to 1.9 cm in size. The left ovary has had a similar appearance on prior examinations. 10. Prominence of vascularity within the left adnexa and enlargement of the left gonadal vein, as can be seen with pelvic congestion. THIS IS AN ELECTRONICALLY VERIFIED FINAL REPORT 12/18/2024 6:48 AM - Electronically signed by Fatemeh Gomes M.D. TW: JUAN R Report ID: [id number] Reading Location: [id number] Procedure Note Fatemeh Gomes MD - 12/18/2024 EXAM DESCRIPTION: CT CHEST PE (CTA) ABDOMEN PELVIS W CONTRAST REASON FOR STUDY: Syncope, collapse, abnormal LFTs, elevated lipase,elevated total bilirubin, Patient presents status post becoming unresponsive on her sofa thisevening, patient denied chest pain, shortness of breath, abdominal pian, nausea, vomiting or any other complaints at this time. TECHNIQUE: CT angiogram of the chest with routine abdomen and pelvisperformed with intravenous and without oral contrast using helical scanningtechnique with dynamic intravenous contrast injection. Reconstructed coronal and sagittal MPR images reviewed. All images stored on PACS. 3D MIP images ofthe chest rendered on scanning unit and reviewed at time of interpretation. Automated exposure control was used as a dose optimization technique forthis examination. CONTRAST TYPE/DOSE: 100mL of IOVERSOL 350 MG IODINE/ML INTRAVENOUS SYRINGE injected via intravenous COMPARISON: 01/12/2021, 05/03/2020 FINDINGS: CHEST CHEST VASCULATURE: No acute pulmonary embolus. The thoracic aorta isnormal in caliber without dissection. Main pulmonary trunk normal in caliber. LUNGS: Minimal emphysematous changes at the apices. There is nopneumonic consolidation. No suspicious pulmonary nodule. The central airways are patent. Minimal bronchial wall thickening is suggested. Correlate withany current symptoms of bronchitis. PLEURA: No effusion. No pneumothorax. MEDIASTINUM/BARRETT: The visualized thyroid gland is unremarkable. There isno mediastinal or hilar lymphadenopathy. Mild thickening of the distal esophagus. Correlate clinically with regards to reflux or esophagitis. HEART: The heart is normal in size without pericardial effusion. AXILLA: No adenopathy. CHEST WALL: No masses. No subcutaneous air. HARDWARE/LINES/TUBES: None. MUSCULOSKELETAL CHEST: There is subtle concavity of the superior endplateof T5, chronic in appearance. There is no acute osseous abnormality ABDOMEN/PELVIS LIVER: There is hepatomegaly. There is diffuse hepatic steatosis. Thereis no suspicious hepatic lesion. GALLBLADDER: The gallbladder is normal in caliber. Borderline thickeningof the gallbladder wall. No densely calcified stone. Ultrasound can beutilized for further evaluation. BILE DUCTS: No intrahepatic or extrahepatic ductal dilatation. SPLEEN: Normal size. No focal lesions. PANCREAS: No peripancreatic inflammatory process or fluid collection. No pancreatic mass. No ductal dilatation. Correlate with laboratory values which are more sensitive. ADRENALS: Unremarkable. KIDNEYS/URINARY TRACT: Kidneys enhance symmetrically. No suspiciouscystic or solid mass. Erica metric hypodensities, too small to characterize. No hydronephrosis or hydroureter. The urinary bladder is unremarkable. GI: The stomach is similar in configuration compared to the prior examination. There is mild thickening of the duodenal, most evidentwithin the 2nd portion. Correlate clinically with regards to duodenitis. Small bowel loops are within normal limits in caliber. There is no obstruction. The appendix is normal. The colon is normal in caliber. There is diverticulosis, without diverticulitis. Portions of the left hemicolonare decompressed which limits evaluation. PERITONEUM: There is no free intraperitoneal air. There is no freefluid. No mesenteric lymphadenopathy. RETROPERITONEUM: There is no retroperitoneal mass or adenopathy. REPRODUCTIVE: The uterus is anteverted. There is either a septatedcystic lesion or adjacent cysts within the left ovary, measuring up to 1.9 cm insize on axial image 119. The left ovary has had a similar appearance on prior examinations. There is prominence of vascularity within the left adnexa enlargement ofthe left gonadal vein, as can be seen with pelvic congestion. Within the right adnexa, there is a fat containing lesion lesion measuring2.8 x 2.5 cm on axial image number 121. On the prior examination there was a8 cm lesion containing fat, soft tissue and calcification compatible with a dermoid. The calcification present on the prior study is not visualizedon the current examination. Correlate with interval surgery. VASCULATURE ABDOMEN: Abdominal aorta is normal in caliber. MUSCULOSKELETAL ABDOMEN PELVIS: No acute osseous abnormality. OTHER: No significant abnormality. IMPRESSION: 1. No CT evidence of pulmonary embolus. 2. No consolidation, effusion or pneumothorax. 3. Mild thickening of the distal esophagus. Correlate clinically with regards to reflux or esophagitis. 4. Mild thickening of the duodenum. Correlate clinically with regards to duodenitis. 5. Hepatomegaly and diffuse hepatic steatosis. 6. Borderline thickening of the gallbladder wall. No densely calcified stone. No adjacent inflammation.. Ultrasound can be utilized for further evaluation if warranted clinically. 7. No CT evidence of pancreatitis. Correlate with laboratory values. 8. Fat containing lesion within the right adnexa measuring up to 2.8 cm.A dermoid measuring up to 8 cm was present on the prior study in 2020. That lesion contains a calcification. There is no calcification demonstratedin the current lesion. Correlate with any interval surgery. Pelvicultrasound can be considered as warranted clinically for further evaluation. 9. Septated cystic lesion versus adjacent cysts within the left ovary, measuring up to 1.9 cm in size. The left ovary has had a similarappearance on prior examinations. 10. Prominence of vascularity within the left adnexa and enlargement ofthe left gonadal vein, as can be seen with pelvic congestion. THIS IS AN ELECTRONICALLY VERIFIED FINAL REPORT 12/18/2024 6:48 AM - Electronically signed by Fatemeh Gomes M.D. TW: TW Report ID: [id number] Reading Location: [place] [address] Jay Sykes MD IMG CT PROCEDURES Final Result * (ABNORMAL) Urinalysis reflex to microscopic and culture Urine (12/17/2024 10:24 PM CDT) Color, ur Light-[place] Clarity, ur Turbid(A) Clear [facility] ([place]) Specific gravity, ur 1.026 1.003 - 1.030 [facility] ([place]) pH, urine 8.5 [facility] ([place]) Comment: Interpretive Data U rine pH is affected by diet, medications, systemic acid-base disturbances, and renal tubular function. pH may affect urinary stone formation. For example, urine pH below 6.0 may help reduce the tendency for calcium phosphate stones and pH greater than 6.0 may reduce the tendency for uric acid stone formation. Source: [employer] Current Interpretive Data was last revised on 2017 Protein, ur ql 1+(A) Negative [facility] ([place]) Glucose, ur ql Negative Negative [facility] ([place]) Ketones, ur 2+(A) Negative [facility] ([place]) Bilirubin, ur Negative Negative [facility] ([place]) Blood, ur Negative Negative [facility] ([place]) Urobilinogen, ur 2.0(A) <2.0 mg/dL [facility] ([place]) Nitrite, ur Negative Negative [facility] ([place]) Leukocyte esterase, ur 3+(A) Negative [facility] ([place]) UA reflex comment Reflex to microscopic UA will be performed. [facility] ([place]) Urine 12/17/2024 10:2 4 PM CDT 12/17/2024 10:27 PM CDT Bindu Clayton MD LAB MICROBIOLOGY - GENERA L ORDERABLES Final Result [facility] ([place]) 1 [facility] Department of Laboratories [place], [place] [id number] * (ABNORMAL) Drugs of Abuse Screen, Urine without Confirmation (12/17/2024 10:24 PM CDT) Amphetamine, ur Not Detected CutOff 500ng/mL [facility] ([place]) Comment: Interpretive Data - Amphetamines: Samples containing greater than 500 ng/mL d-methamphetamine or other cross-reacting amphetamine compounds are reported as positive. Amphetamine immunoassays are subject to significant false positive rates due to cross-reactivity of non-amphetamine drugs. Confirmatory testing required for definitive results. Current Interpretive Data was last reviewed 2022. Barbiturates, ur Not Detected CutOff 200ng/mL [facility] ([place]) Comment: Interpretive Data - Barbiturates: Samples containing greater than 200 ng/mL secobarbital or other cross-reacting barbiturate compounds are reported as positive. False positive and false negative results are possible. Confirmatory testing required for definitive results. Current Interpretive Data was last reviewed 2022. Benzodiazepines, ur Screen Positive, presumptive (A) CutOff 100ng/mL [facility] ([place]) Comment: Interpretive Data - Benzodiazepines: Samples containing greater than 100 ng/mL nordiazepam or other cross-reacting compounds are reported as positive. False positive and false negative results are possible. Confirmatory testing required for definitive results. Current Interpretive Data was last reviewed 2022. Cannabinoids, ur Screen Positive, presumptive (A) CutOff 50 ng/mL [facility] ([place]) Comment: Interpretive Data - Cannabinoids: Samples containing greater than 50 ng/mL delta-9 THC -COOH or other cross- reacting compounds are reported as positive. False positive and false negative results are possible. Confirmatory testing required for definitive results. Current Interpretive Data was last reviewed 2022. Cocaine, ur Not Detected CutOff 150ng/mL [facility] ([place]) Comment: Interpretive Data - Cocaine: Samples containing greater than 150 ng/mL benzoylecgonine or other cross- reacting compounds are reported as positive. False positive and false negative results are possible. Confirmatory testing required for definitive results. Current Interpretive Data was last reviewed 2022. Fentanyl, Ur Not Detected CutOff 5 ng/mL [facility] ([place]) Comment: Interpretive Data - Fentanyl: Samples containing greater than 5 ng/mL norfentanyl, fentanyl, or other cross-reacting fentanyl compounds are reported as positive. False positive and false negative results are possible. Confirmatory testing required for definitive results. Current Interpretive Data was last reviewed 2023. Methadone, ur Not Detected CutOff 300ng/mL [facility] ([place]) Comment: Interpretive Data - Methadone: Samples containing greater than 300 ng/mL d,l-methadone or other cross-reacting compounds are reported as positive. False positive and false negative results are possible. Confirmatory testing required for definitive results. Current Interpretive Data was last reviewed 2022. Opiates, ur Not Detected CutOff 300ng/mL [facility] ([place]) Comment: Interpretive Data - Opiates: Samples containing greater than 300 ng/mL morphine or other cross-reacting compounds are reported as positive. False positive and false negative results are possible. Confirmatory testing required for definitive results. Current Interpretive Data was last reviewed 2022. Oxycodone, ur NOT DETECTED CutOff 100ng/mL [facility] ([place]) Comment: Interpretive Data - Oxycodone: Samples containing greater than 100 ng/mL oxycodone or other cross-reacting compounds are reported as positive. False positive and false negative results are possible. Confirmatory testing required for definitive results. Current Interpretive Data was last reviewed 2022. Phencyclidine, ur Not Detected CutOff 25 ng/mL [facility] ([place]) Comment: Interpretive Data - Phencyclidine: Samples containing greater than 25 ng/mL phencyclidine or other cross-reacting compounds are reported as positive. False positive and false negative results are possible. Confirmatory testing required for definitive results. Current Interpretive Data was last reviewed 2022. Urine Creatinine 174 mg/dL [facility] ([place]) Comment: Interpretive Data Urine Creatinine: < 10 mg/dL is extremely dilute = or > 10 but < 20 mg/dL is dilute = or > 20 mg/dL is normal Current Interpretive Data was last revised on 2017. Urine 12/17/2024 10:2 4 PM CDT 12/17/2024 10:27 PM CDT Narrative [facility] ([place]) - 12/17/2024 11:15 PM CDT Drug of Abuse screening is performed by immunoassay for medical purposes only. This is not to be used for Pain Management purposes. Bindu Clayton MD LAB URINE ORDERABLES Ev l Result Performing Organization Address [facility] Co de Phone Number [facility] ([place]) 1 [facility] [employer] [place] [address] * (ABNORMAL) Urinalysis, microscopic only (12/17/2024 10:24 PM CDT) WBC, ur 11-20(A) 0 - 5 /HPF RBC, ur 3-5(A) 0 - 2 /HPF [facility] ([place]) Epithelial cells, squamous, ur 11-20(A) 0 - 5 /HPF [facility] ([place]) Comment:Suggestive of contam ination. Consider recollection by clean catch. Mucous, ur Present(A) J[facility] Avila ([place]) Culture Reflex Comment Reflex to urine culture will be performed. [facility] ([place]) Urine 12/17/2024 10:2 4 PM CDT 12/17/2024 10:27 PM CDT Bindu Clayton MD LAB URINE ORDERABLES Ev l Result Performing Organization Address City/[facility] Co de Phone Number [facility] ([place]) 1 [facility] [place] [address] * Urine culture Urine (12/17/2024 10:24 PM CDT) Report Final Report: Less than 100,000 colonies/mL (clinically insignificant growth based on current clinical standards) Comment:Testing performed by : [facility], 1 [facility], [place]., [address] Organism (CLINICALLY INSIGNIFICANT GROWTH [facility] ([place]) Urine 12/17/2024 10:2 4 PM CDT 12/18/2024 2:35 AM CDT Narrative [facility] ([place]) - 12/19/2024 11:44 AM CDT Urine culture reflexed based upon urinalysis results. Testing performed by [facility] Microbiology Laboratory ([phone]) us Bindu Clayton MD LAB MICROBIOLOGY - GENERA L ORDERABLES Final Result Performing Organization Address City/[facility]/ZIP Co de Phone Number [facility]B [facility] ([place]) 1 [facility] Department [place] [address] * ECG 12 lead (12/17/2024 10:13 PM CDT) 12/17/2024 10:1 3 PM CDT Narrative [facility] - 12/18/2024 7:58 AM CDT Vent Rate: 66 bpm RR Interval: 904 msec IN Interval: 145 msec QRS Duration: 77 msec QT Interval: 427 msec QTC Interval: 440 msec P-R-T [place]: 7 - 29 - 48 degrees IMPRESSION: SINUS RHYTHM WITH SINUS ARRHYTHMIA NORMAL ECG No change compared to prior EKG Electronically Signed By: Joo Myles MD [facility] us Bindu Clayton MD ECG ORDERABLES Final Res ult Performing Organization Address [facility] Co de Phone Number [facility] [employer] [facility] * Troponin T high-sensitivity series (baseline, 2hr, 4hr, 6hr) (12/17/2024 9:41 PM CDT) Trop T hs <6 <=14 ng/L [facility] ([place]) Comment: Interpretive Data For further hscTnT resources including the diagnostic algorithm and an aid in interpretation, copy and paste this link: https://nrl.testcatalog.org/show/hsTrop Current Interpretive Data last revised 2020. Blood 12/17/2024 9:41 PM CDT 12/17/2024 10:13 PM CDT us Bindu Clayton MD LAB BLOOD ORDERABLES Ev l Result [facility] ([place]) 1 [facility] [place] [address] * Influenza A/B, RSV, and COVID-19 PCR Nasopharyngeal (12/17/2024 9:41 PM CDT) Pathologist [facility] COVID-19 RNA Negative Negative Influenza A RNA Negative Negative [facility] ([place]) Influenza B RNA Negative Negative [facility] ([place]) RSV RNA Negative Negative [facility] ([place]) Comment: Interpretive data: Testing performed by [facility]. This test is performed using the [employer] Xpert Xpress CoV-2/Flu/RSV plus assay. This is a multiplex, real- time reverse transcriptase PCR assay intended for the qualitative detection of nucleic acid from SARS-CoV-2, influenza A, influenza B, and respiratory syncytial virus. This assay has been cleared by the [place] Food and Drug administration. The performance characteristics have been verified by the [facility]. Results must be considered in the clinical context, and a negative result does not rule out infection. Interpretive Data last revised 2023 Nasopharyngeal 12/17/2024 9: 41 PM CDT 12/17/2024 9:43 PM CDT Narrative [facility] ([place]) - 12/17/2024 10:24 PM CDT Is the Patient experiencing symptoms consistent with COVID?->Yes Bindu Clayton MD LAB MICROBIOLOGY - GENERA L ORDERABLES Final Result [facility] ([place]) 1 [facility] Department [place] [address] * Sepsis Lactate w/ Reflex (12/17/2024 9:41 PM CDT) Pathologist [facility] Sepsis Lactate 0.9 0.7 - 2.0 mmol/L Blood 12/17/2024 9:41 PM CDT 12/17/2024 9:43 PM CDT us Bindu Clayton MD LAB BLOOD ORDERABLES Ev l Result JB AlexandreT[place]) [address] [place] [address] [place] [address] * Thyroid Function Waldo (12/17/2024 9:41 PM CDT) TSH 2.78 0.30 - 4.20 mcIUnit/mL [facility] ([place]) Blood 12/17/2024 9:41 PM CDT 12/17/2024 9:43 PM CDT Bindu Clayton MD LAB BLOOD ORDERABLES Ev l Result Performing Organization Address [facility] Co de Phone Number [facility] ([place]) [address] [place] [address] [place] [address] * (ABNORMAL) Lipase (12/17/2024 9:41 PM CDT) Lipase 376(H) 10 - 99 Units/L [facility] ([place]) Blood 12/17/2024 9:41 PM CDT 12/17/2024 9:43 PM CDT Bindu Clayton MD LAB BLOOD ORDERABLES Ev l Result Performing Organization Address City/[facility]/ZIP Co de Phone Number [facility] ([place]) [address] [place] [address] [place] [address] * CT Head WO Contrast (12/17/2024 8:25 PM CDT) Anatomical Region Laterality Modality Head and Neck N/A Computed Tomogra phy 12/17/2024 9:21 PM CDT Narrative 12/17/2024 9:23 PM CDT EXAM DESCRIPTION: CT HEAD WO CONTRAST REASON FOR STUDY: Syncope/presyncope, cerebrovascular cause suspected Patient presents status post passing out for about 2 minutes while seated on a sofa, no fall no head strike. TECHNIQUE: Axial images acquired through the brain without intravenous contrast. Images stored on PACS. Automated exposure control was used as a dose optimization technique for this examination. COMPARISON: Head CT dated 12/16/2024. FINDINGS: BRAIN: No hemorrhage, edema or mass effect. No recent infarct. Normal white matter. EXTRA-AXIAL SPACES: No fluid collections. No masses. CALVARIUM: No fracture. SINUSES/MASTOIDS: No fluid or mucosal thickening. ORBITS: No significant abnormality. OTHER: No other significant abnormality. IMPRESSION: No acute intracranial findings. THIS IS AN ELECTRONICALLY VERIFIED FINAL REPORT 12/17/2024 9:23 PM - Electronically signed by Sergio DALEY: THUY Report ID: [id number] Reading Location: [place] [address] Procedure Note Sergio Hull, DO - 12/17/2024 EXAM DESCRIPTION: CT HEAD WO CONTRAST REASON FOR STUDY: Syncope/presyncope, cerebrovascular cause suspected Patient presents status post passing out for about 2 minutes whileseated on a sofa, no fall no head strike. TECHNIQUE: Axial images acquired through the brain without intravenous contrast. Images stored on PACS. Automated exposure control was used asa dose optimization technique for this examination. COMPARISON: Head CT dated 12/16/2024. FINDINGS: BRAIN: No hemorrhage, edema or mass effect. No recent infarct. Normal white matter. EXTRA-AXIAL SPACES: No fluid collections. No masses. CALVARIUM: No fracture. SINUSES/MASTOIDS: No fluid or mucosal thickening. ORBITS: No significant abnormality. OTHER: No other significant abnormality. IMPRESSION: No acute intracranial findings. THIS IS AN ELECTRONICALLY VERIFIED FINAL REPORT 12/17/2024 9:23 PM - Electronically signed by Sergio Hull M.D. MF: THUY Report ID: [id number] Reading Location: [id number] Anthony Jenkins MD [facility] CT PROCEDURES Final Result * POCT glucose (12/17/2024 6:09 PM CDT) Glucose, POC 119 70 - 199 mg/dL Blood 12/17/2024 6:09 PM CDT 12/17/2024 6:09 PM CDT us Notinfile Unknown LAB POCT ORDERABLES - DEVICE F inal Result Performing Organization Address City/[facility]/ZIP Co de Phone Number [facility] ([place]) 1 [facility] [place] [address] * eGFR (12/17/2024 5:18 PM CDT) eGFR >90 >=60 mL/min/1. 73 m2 Comment: Interpretive Data Reference Interval Normal >/= 90 mL/min/1.73m2 Mildly decreased* 60 - 89 mL/min/1.73m2 Mildly to moderately decreased 45 - 59 mL/min/1.73m2 Moderately to severely decreased 30 - 44 mL/min/1.73m2 Severely decreased 15 - 29 mL/min/1.73m2 Kidney Failure < 15 mL/min/1.73m2 *Relative to young adult level Estimated glomerular filtration rate is determined by the 2020 CKD-EPI equation recommended by the National Kidney Foundation (A Unifying Approach to GFR Estimation: Recommendations of the NKF-ASK Task Force on Reassessing the Inclusion of Race in Diagnosing Kidney Disease, JASN 2020). The CKD-EPI equation should not be used for patients with unstable renal function and has not been validated in children and those over 70. Current interpretive data was last reviewed 2021. Blood 12/17/2024 5:18 PM CDT 12/17/2024 5:28 PM CDT us Bindu Clayton MD LAB BLOOD ORDERABLES Ev l Result [facility] ([place]) 1 [facility] [place] [address] * Differential, auto (12/17/2024 5:18 PM CDT) Neutrophil abs 6.08 1.50 - 6.50 K/cumm Imm gran abs 0.03 0.00 - 0.10 K/cumm [facility] ([place]) Lymphocyte abs 2.08 0.80 - 3.30 K/cumm [facility] ([place]) Monocyte abs 0.77 0.20 - 0.80 K/cumm [facility] ([place]) Eosinophil abs 0.13 0.00 - 0.50 K/cumm [facility] ([place]) Basophil abs 0.08 0.00 - 0.10 K/cumm [facility] ([place]) Neutrophil pct 66.3 % [facility] ([place]) Comment: Interpretive Data Percent cell count reference ranges are not reported, since discordance with absolute values may lead to misinterpretation of CBC data. Current Interpretive Data was last revised on 2017. Imm gran pct 0.3 % [facility] ([place]) Comment: Interpretive Data Percent cell count reference ranges are not reported, since discordance with absolute values may lead to misinterpretation of CBC data. Current Interpretive Data was last revised on 2017. Lymphocyte pct 22.7 % [facility] ([place]) Comment: Interpretive Data Percent cell count reference ranges are not reported, since discordance with absolute values may lead to misinterpretation of CBC data. Current Interpretive Data was last revised on 2017. Monocyte pct 8.4 % [facility] ([place]) Comment: Interpretive Data Percent cell count reference ranges are not reported, since discordance with absolute values may lead to misinterpretation of CBC data. Current Interpretive Data was last revised on 2017. Eosinophil pct 1.4 % [facility] ([place]) Comment: Interpretive Data Percent cell count reference ranges are not reported, since discordance with absolute values may lead to misinterpretation of CBC data. Current Interpretive Data was last revised on 2017. Basophil pct 0.9 % [facility] ([place]) Comment: Interpretive Data Percent cell count reference ranges are not reported, since discordance with absolute values may lead to misinterpretation of CBC data. Current Interpretive Data was last revised on 2017. Blood 12/17/2024 5:18 PM CDT 12/17/2024 5:28 PM CDT Bindu Clayton MD LAB BLOOD ORDERABLES Ev tran Result [facility] ([place]) 1 [facility] [place] [address] * (ABNORMAL) CBC with auto differential (12/17/2024 5:18 PM CDT) WBC 9.17 3.80 - 9.90 K/cumm Hgb 13.6 11.9 - 15.5 g/dL [facility] ([place]) Hct 39.3 35.6 - 45.5 % [facility] ([place]) Plt 152 150 - 400 K/cumm [facility] ([place]) MPV 10.1 9.1 - 12.3 fL [facility] ([place]) RBC 3.98 3.90 - 5.20 M/cumm [facility] ([place]) MCV 98.7(H) 81.3 - 96.4 fL [facility] ([place]) MCH 34.2(H) 27.1 - 33.3 pg [facility] ([place]) MCHC 34.6 32.3 - 35.7 g/dL [facility] ([place]) RDW CV 12.1 11.1 - 14.9 % [facility] ([place]) RDW SD 44.1 35.7 - 48.1 fL [facility] ([place]) NRBC abs 0.00 0.00 - 0.01 K/cumm [facility] ([place]) Blood 12/17/2024 5:18 PM CDT 12/17/2024 5:28 PM CDT Bindu Clayton MD LAB BLOOD ORDERABLES Ev tran Result [facility] ([place]) 1 [facility] [place] [address] * Magnesium (12/17/2024 5:18 PM CDT) Pathologist [facility] Magnesium 1.4 1.4 - 2.5 mg/dL [facility] ([place]) Blood 12/17/2024 5:18 PM CDT 12/17/2024 8:17 PM CDT Bindu Clayton MD LAB BLOOD ORDERABLES Ev l Result Performing Organization Address City/[facility]/ZIP Co de Phone Number [facility] ([place]) 1 [place] [address] * Ethanol (12/17/2024 5:18 PM CDT) Pathologist [facility] Ethanol <10 <=10 mg/dL [facility] ([place]) Comment: Interpretive Data Legal limit of intoxication > or = 80 mg/dL Levels > or = 400 mg/dL are potentially TOXIC. Current interpretive data was last revised on 2018. Blood 12/17/2024 5:18 PM CDT 12/17/2024 8:17 PM CDT Bindu Clayton MD LAB BLOOD ORDERABLES Ev l Result Performing Organization Address City/[facility] Co de Phone Number [facility] ([place]) 1 [place] [address] * (ABNORMAL) Comprehensive metabolic panel (12/17/2024 5:18 PM CDT) Sodium 137 135 - 145 mmol/L [facility] ([place]) Potassium, pl 3.6 3.3 - 4.9 mmol/L [facility] ([place]) Chloride 99 97 - 110 mmol/L [facility] ([place]) CO2 21(L) 22 - 32 mmol/L [facility] ([place]) Anion gap 17(H) 2 - 15 mmol/L [facility] ([place]) BUN 5(L) 6 - 25 mg/dL [facility] ([place]) Creatinine 0.69 0.60 - 1.10 mg/dL [facility] ([place]) Glucose 140 70 - 199 mg/dL [facility] ([place]) Comment: Interpretive Data Fasting glucose >/= 126 mg/dl is diagnostic for diabetes. Fasting is defined as no caloric intake for at least 8 hours. Fasting glucose between 100 mg/dl to 125 mg/dl is diagnostic of prediabetes. In a patient with classic symptoms of hyperglycemia or hyperglycemic crisis, a random glucose >/= 200 mg/dl is diagnostic for diabetes. In the absence of unequivocal hyperglycemia, results should be confirmed by repeat testing. The classification and Diagnosis of Diabetes Diabetes Care 202; 46: S19-S40. Current interpretive data was last revised 2022. Calcium 9.5 8.5 - 10.3 mg/dL [facility] ([place]) Bilirubin, total 1.7(H) 0.1 - 1.2 mg/dL [facility] ([place]) Protein, pl 7.0 6.5 - 8.5 g/dL [facility] ([place]) Albumin 4.4 3.5 - 5.0 g/dL [facility] ([place]) Alk phos 122 40 - 130 Units/L [facility] ([place]) ALT 109(H) 7 - 45 Units/L [facility] ([place]) AST 160(H) 10 - 45 Units/L [facility] ([place]) Blood 12/17/2024 5:18 PM CDT 12/17/2024 5:28 PM CDT us Bindu Clayton MD LAB BLOOD ORDERABLES Ev l Result [facility] ([place]) 1 [facility] Department [place] [address] * ECG 12 lead (12/17/2024 5:12 PM CDT) 12/17/2024 5:12 PM CDT Narrative [facility] - 12/18/2024 8:08 AM CDT Vent Rate: 91 bpm RR Interval: 655 msec IN Interval: 134 msec QRS Duration: 79 msec QT Interval: 352 msec QTC Interval: 401 msec P-R-T [place]: 3 - 57 - 60 degrees IMPRESSION: SINUS RHYTHM NORMAL ECG No change compared to prior EKG Electronically Signed By: Joo Myles MD B us Bindu Clayton MD ECG ORDERABLES Final Res ult [facility] * CT Head WO Contrast (12/16/2024 5:51 PM CDT) Anatomical Region Laterality Modality Head and Neck N/A Computed Tomogra phy 12/16/2024 6:37 PM CDT Narrative 12/16/2024 6:38 PM CDT EXAM DESCRIPTION: CT HEAD WO CONTRAST REASON FOR STUDY: Mental status change, unknown cause Pt to triage via EMS for c/o a possible syncopal episode. Pt reports she took a few shots of vodka today and went to clean her parents house. Pt called her son because she felt like she couldn't lift her leg and she felt like jello. Pt reports when her son came she was unresponsive. Pt does have hx of seizures but hasn't had one in 7 years. Pt repeatedly saying she feels like she could pass out. Pt given 250 mL NS en route via EMS. TECHNIQUE: Axial images acquired through the brain without intravenous contrast. Images stored on PACS. Automated exposure control was used as a dose optimization technique for this examination. COMPARISON: None FINDINGS: BRAIN: No hemorrhage, edema or mass effect. No recent infarct. Normal white matter. EXTRA-AXIAL SPACES: No fluid collections. No masses. CALVARIUM: No fracture. SINUSES/MASTOIDS: No fluid or mucosal thickening. ORBITS: No significant abnormality. OTHER: No other significant abnormality. IMPRESSION: No acute intracranial findings. THIS IS AN ELECTRONICALLY VERIFIED FINAL REPORT 12/16/2024 6:38 PM - Electronically signed by Jim Grider M.D. KT: KEO Report ID: [id number] Reading Location: [id number] Procedure Note Jim Grider MD - 12/16/2024 EXAM DESCRIPTION: CT HEAD WO CONTRAST REASON FOR STUDY: Mental status change, unknown cause Pt to triage via EMS for c/o a possible syncopal episode. Pt reports shetook a few shots of vodka today and went to clean her parents house. Pt calledher son because she felt like she couldn't lift her leg and she felt likejello. Pt reports when her son came she was unresponsive. Pt does have hx of seizures but hasn't had one in 7 years. Pt repeatedly saying she feelslike she could pass out. Pt given 250 mL NS en route via EMS. TECHNIQUE: Axial images acquired through the brain without intravenous contrast. Images stored on PACS. Automated exposure control was used asa dose optimization technique for this examination. COMPARISON: None FINDINGS: BRAIN: No hemorrhage, edema or mass effect. No recent infarct. Normal white matter. EXTRA-AXIAL SPACES: No fluid collections. No masses. CALVARIUM: No fracture. SINUSES/MASTOIDS: No fluid or mucosal thickening. ORBITS: No significant abnormality. OTHER: No other significant abnormality. IMPRESSION: No acute intracranial findings. THIS IS AN ELECTRONICALLY VERIFIED FINAL REPORT 12/16/2024 6:38 PM - Electronically signed by Jim Grider M.D. KT: KEO Report ID: [id number] Reading Location: [place] [address] Patricio Vallecillo MD IMG CT PROCEDURES Final Resu lt * ECG 12 lead (12/16/2024 4:40 PM CDT) 12/16/2024 4:40 PM CDT Narrative [facility] - 12/17/2024 6:34 AM CDT Vent Rate: 94 bpm RR Interval: 635 msec IN Interval: 116 msec QRS Duration: 85 msec QT Interval: 365 msec QTC Interval: 417 msec P-R-T [place]: 4 - 35 - 57 degrees IMPRESSION: SINUS RHYTHM WITH SHORT IN INTERVAL BORDERLINE ECG NO CHANGE FROM PREVIOUS TRACING NOTED Electronically Signed By: Germain Richards MD Patricio Vallecillo MD ECG ORDERABLES Final Result [facility] * eGFR (12/16/2024 4:40 PM CDT) eGFR >90 >=60 mL/min/1. 73 m2 Comment: Interpretive Data Reference Interval Normal >/= 90 mL/min/1.73m2 Mildly decreased* 60 - 89 mL/min/1.73m2 Mildly to moderately decreased 45 - 59 mL/min/1.73m2 Moderately to severely decreased 30 - 44 mL/min/1.73m2 Severely decreased 15 - 29 mL/min/1.73m2 Kidney Failure < 15 mL/min/1.73m2 *Relative to young adult level Estimated glomerular filtration rate is determined by the 2020 CKD-EPI equation recommended by the National Kidney Foundation (A Unifying Approach to GFR Estimation: Recommendations of the NKF-ASK Task Force on Reassessing the Inclusion of Race in Diagnosing Kidney Disease, JASN 2020). The CKD-EPI equation should not be used for patients with unstable renal function and has not been validated in children and those over 70. Current interpretive data was last reviewed 2021. Blood 12/16/2024 4:40 PM CDT 12/16/2024 4:57 PM CDT us Patricio Vallecillo MD LAB BLOOD ORDERABLES Final R esult [facility] ([place]) 1 [facility] [place] [address] * (ABNORMAL) Differential, auto (12/16/2024 4:40 PM CDT) Pathologist [facility] Neutrophil abs 4.89 1.50 - 6.50 K/cumm Imm gran abs 0.03 0.00 - 0.10 K/cumm [facility] ([place]) Lymphocyte abs 3.34(H) 0.80 - 3.30 K/cumm [facility] ([place]) Monocyte abs 0.69 0.20 - 0.80 K/cumm [facility] ([place]) Eosinophil abs 0.23 0.00 - 0.50 K/cumm [facility] ([place]) Basophil abs 0.14(H) 0.00 - 0.10 K/cumm [facility] ([place]) Neutrophil pct 52.5 % [facility] ([place]) Comment: Interpretive Data Percent cell count reference ranges are not reported, since discordance with absolute values may lead to misinterpretation of CBC data. Current Interpretive Data was last revised on 2017. Imm gran pct 0.3 % [facility] ([place]) Comment: Interpretive Data Percent cell count reference ranges are not reported, since discordance with absolute values may lead to misinterpretation of CBC data. Current Interpretive Data was last revised on 2017. Lymphocyte pct 35.8 % [facility] ([place]) Comment: Interpretive Data Percent cell count reference ranges are not reported, since discordance with absolute values may lead to misinterpretation of CBC data. Current Interpretive Data was last revised on 2017. Monocyte pct 7.4 % [facility] ([place]) Comment: Interpretive Data Percent cell count reference ranges are not reported, since discordance with absolute values may lead to misinterpretation of CBC data. Current Interpretive Data was last revised on 2017. Eosinophil pct 2.5 % [facility] ([place]) Comment: Interpretive Data Percent cell count reference ranges are not reported, since discordance with absolute values may lead to misinterpretation of CBC data. Current Interpretive Data was last revised on 2017. Basophil pct 1.5 % [facility] ([place]) Comment: Interpretive Data Percent cell count reference ranges are not reported, since discordance with absolute values may lead to misinterpretation of CBC data. Current Interpretive Data was last revised on 2017. Blood 12/16/2024 4:40 PM CDT 12/16/2024 4:57 PM CDT us Patricio Vallecillo MD LAB BLOOD ORDERABLES Final R esult [facility] ([place]) 1 [facility] Department of Laboratories [place], [place] [id number] * (ABNORMAL) Urinalysis reflex to microscopic and culture Urine (12/16/2024 4:40 PM CDT) Color, ur Yellow Yellow Clarity, ur Clear Clear [facility] ([place]) Specific gravity, ur 1.006 1.003 - 1.030 [facility] ([place]) pH, urine 7.0 [facility] ([place]) Comment: Interpretive Data U rine pH is affected by diet, medications, systemic acid-base disturbances, and renal tubular function. pH may affect urinary stone formation. For example, urine pH below 6.0 may help reduce the tendency for calcium phosphate stones and pH greater than 6.0 may reduce the tendency for uric acid stone formation. Source: [facility] Current Interpretive Data was last revised on 2017 Protein, ur ql Negative Negative [facility] ([place]) Glucose, ur ql Negative Negative [facility] ([place]) Ketones, ur 1+(A) Negative [facility] ([place]) Bilirubin, ur Negative Negative [facility] ([place]) Blood, ur Negative Negative [facility] ([place]) Urobilinogen, ur <2.0 <2.0 mg/dL [facility] ([place]) Nitrite, ur Negative Negative [facility] ([place]) Leukocyte esterase, ur Negative Negative [facility] ([place]) UA reflex comment Reflex conditions for microscopic UA and culture not met. [facility] Urine 12/16/2024 4:40 PM CDT 12/16/2024 5:03 PM CDT us Patricio Vallecillo MD LAB MICROBIOLOGY - GENERAL O RDERABLES Final Result [facility] ([place]) 1 [facility] Department [place] [address] * (ABNORMAL) CBC with auto differential (12/16/2024 4:40 PM CDT) WBC 9.32 3.80 - 9.90 K/cumm Hgb 14.4 11.9 - 15.5 g/dL [facility] ([place]) Hct 41.7 35.6 - 45.5 % [facility] ([place]) Plt 177 150 - 400 K/cumm [facility] ([place]) MPV 9.8 9.1 - 12.3 fL [facility] ([place]) RBC 4.24 3.90 - 5.20 M/cumm [facility] ([place]) MCV 98.3(H) 81.3 - 96.4 fL [facility] ([place]) MCH 34.0(H) 27.1 - 33.3 pg [facility] ([place]) MCHC 34.5 32.3 - 35.7 g/dL [facility] ([place]) RDW CV 12.4 11.1 - 14.9 % [facility] ([place]) RDW SD 45.0 35.7 - 48.1 fL [facility] ([place]) NRBC abs 0.00 0.00 - 0.01 K/cumm [facility] ([place]) Blood 12/16/2024 4:40 PM CDT 12/16/2024 4:57 PM CDT Patricio Vallecillo MD LAB BLOOD ORDERABLES Final R esult [facility] ([place]) 1 [facility] Department [place] [address] * (ABNORMAL) Drugs of Abuse Screen, Urine without Confirmation (12/16/2024 4:40 PM CDT) Amphetamine, ur Not Detected CutOff 500ng/mL [facility] ([place]) Comment: Interpretive Data - Amphetamines: Samples containing greater than 500 ng/mL d-methamphetamine or other cross-reacting amphetamine compounds are reported as positive. Amphetamine immunoassays are subject to significant false positive rates due to cross-reactivity of non-amphetamine drugs. Confirmatory testing required for definitive results. Current Interpretive Data was last reviewed 2022. Barbiturates, ur Not Detected CutOff 200ng/mL [facility] ([place]) Comment: Interpretive Data - Barbiturates: Samples containing greater than 200 ng/mL secobarbital or other cross-reacting barbiturate compounds are reported as positive. False positive and false negative results are possible. Confirmatory testing required for definitive results. Current Interpretive Data was last reviewed 2022. Benzodiazepines, ur Not Detected CutOff 100ng/mL [facility] ([place]) Comment: Interpretive Data - Benzodiazepines: Samples containing greater than 100 ng/mL nordiazepam or other cross-reacting compounds are reported as positive. False positive and false negative results are possible. Confirmatory testing required for definitive results. Current Interpretive Data was last reviewed 2022. Cannabinoids, ur Screen Positive, presumptive (A) CutOff 50 ng/mL [facility] ([place]) Comment: Interpretive Data - Cannabinoids: Samples containing greater than 50 ng/mL delta-9 THC -COOH or other cross- reacting compounds are reported as positive. False positive and false negative results are possible. Confirmatory testing required for definitive results. Current Interpretive Data was last reviewed 2022. Cocaine, ur Not Detected CutOff 150ng/mL [facility] ([place]) Comment: Interpretive Data - Cocaine: Samples containing greater than 150 ng/mL benzoylecgonine or other cross- reacting compounds are reported as positive. False positive and false negative results are possible. Confirmatory testing required for definitive results. Current Interpretive Data was last reviewed 2022. Fentanyl, Ur Not Detected CutOff 5 ng/mL [facility] ([place]) Comment: Interpretive Data - Fentanyl: Samples containing greater than 5 ng/mL norfentanyl, fentanyl, or other cross-reacting fentanyl compounds are reported as positive. False positive and false negative results are possible. Confirmatory testing required for definitive results. Current Interpretive Data was last reviewed 2023. Methadone, ur Not Detected CutOff 300ng/mL [facility] ([place]) Comment: Interpretive Data - Methadone: Samples containing greater than 300 ng/mL d,l-methadone or other cross-reacting compounds are reported as positive. False positive and false negative results are possible. Confirmatory testing required for definitive results. Current Interpretive Data was last reviewed 2022. Opiates, ur Not Detected CutOff 300ng/mL [facility] ([place]) Comment: Interpretive Data - Opiates: Samples containing greater than 300 ng/mL morphine or other cross-reacting compounds are reported as positive. False positive and false negative results are possible. Confirmatory testing required for definitive results. Current Interpretive Data was last reviewed 2022. Oxycodone, ur NOT DETECTED CutOff 100ng/mL [facility] ([place]) Comment: Interpretive Data - Oxycodone: Samples containing greater than 100 ng/mL oxycodone or other cross-reacting compounds are reported as positive. False positive and false negative results are possible. Confirmatory testing required for definitive results. Current Interpretive Data was last reviewed 2022. Phencyclidine, ur Not Detected CutOff 25 ng/mL [facility] ([place]) Comment: Interpretive Data - Phencyclidine: Samples containing greater than 25 ng/mL phencyclidine or other cross-reacting compounds are reported as positive. False positive and false negative results are possible. Confirmatory testing required for definitive results. Current Interpretive Data was last reviewed 2022. Urine Creatinine 49 mg/dL [facility] ([place]) Comment: Interpretive Data Urine Creatinine: < 10 mg/dL is extremely dilute = or > 10 but < 20 mg/dL is dilute = or > 20 mg/dL is normal Current Interpretive Data was last revised on 2017. Urine 12/16/2024 4:40 PM CDT 12/16/2024 5:03 PM CDT Narrative [facility] ([place]) - 12/16/2024 5:38 PM CDT Drug of Abuse screening is performed by immunoassay for medical purposes only. This is not to be used for Pain Management purposes. Patricio Vallecillo MD LAB URINE ORDERABLES Final R esult Performing Organization Address [facility] Co de Phone Number [facility] 1 [facility] [place] [address] * hCG, urine, qualitative (12/16/2024 4:40 PM CDT) HCG, ur Negative Negative Urine 12/16/2024 4:40 PM CDT 12/16/2024 5:03 PM CDT Patricio Vallecillo MD LAB URINE ORDERABLES Final R esult Performing Organization Address City/[facility] Co de Phone Number [facility] 1 [facility] [place] [address] * (ABNORMAL) Ethanol (12/16/2024 4:40 PM CDT) Ethanol 388(C) <=10 mg/dL [facility] ([place]) Comment: Critical Result called by [id number] at 2024-12-16 17:39:39. Result Read Back by Dedra Mcgee ED Interpretive Data Legal limit of intoxication > or = 80 mg/dL Levels > or = 400 mg/dL are potentially TOXIC. Current interpretive data was last revised on 2018. Blood 12/16/2024 4:40 PM CDT 12/16/2024 4:57 PM CDT us Patricio Vallecillo MD LAB BLOOD ORDERABLES Final R esult [facility] 1 [facility] Department [place] [address] * (ABNORMAL) Comprehensive metabolic panel (12/16/2024 4:40 PM CDT) Sodium 145 135 - 145 mmol/L [facility] ([place]) Potassium, pl 3.2(L) 3.3 - 4.9 mmol/L [facility] Chloride 100 97 - 110 mmol/L [facility] ([place]) CO2 22 22 - 32 mmol/L [facility] ([place]) Anion gap 23(H) 2 - 15 mmol/L [facility] ([place]) BUN 5(L) 6 - 25 mg/dL [facility] ([place]) Creatinine 0.72 0.60 - 1.10 mg/dL [facility] ([place]) Glucose 77 70 - 199 mg/dL [facility] ([place]) Comment: Interpretive Data Fasting glucose >/= 126 mg/dl is diagnostic for diabetes. Fasting is defined as no caloric intake for at least 8 hours. Fasting glucose between 100 mg/dl to 125 mg/dl is diagnostic of prediabetes. In a patient with classic symptoms of hyperglycemia or hyperglycemic crisis, a random glucose >/= 200 mg/dl is diagnostic for diabetes. In the absence of unequivocal hyperglycemia, results should be confirmed by repeat testing. The classification and Diagnosis of Diabetes Diabetes Care 202; 46: S19-S40. Current interpretive data was last revised 2022. Calcium 10.1 8.5 - 10.3 mg/dL [facility] ([place]) Bilirubin, total 0.9 0.1 - 1.2 mg/dL [facility] ([place]) Protein, pl 7.5 6.5 - 8.5 g/dL [facility] ([place]) Albumin 4.6 3.5 - 5.0 g/dL [facility] ([place]) Alk phos 136(H) 40 - 130 Units/L [facility] ([place]) ALT 150(H) 7 - 45 Units/L [facility] ([place]) AST 294(H) 10 - 45 Units/L [facility] ([place]) Blood 12/16/2024 4:40 PM CDT 12/16/2024 4:57 PM CDT Patricio Vallecillo MD LAB BLOOD ORDERABLES Final R esult [facility] ([place]) 1 [facility] [place] [address] from Last 3 Months Insurance [employer] [facility] [employer] ACCESS Advance Directives For more information, please contact: [phone] * Full Code (Latest Code Status on File) Date Activated Date Inactivated Comments 12/18/2024 1:02 AM 12/19/2024 4:24 PM * Full Code Date Activated Date Inactivated Comments 12/18/2024 1:02 AM 12/18/2024 1:02 AM Care Teams Auto Mechanic Apprentice Relationship Specialty Start Date End Date No, Physician PCP - General 01/15/23
--- OUTSIDE RECORDS SUMMARY | 2025-01-03 12:31 | XMS_ITS | Encounter Summary ---
Author Organization [facility] Address [address] [place] [address] Phone Care Team Providers Care Collections Associate Name Role Phone Fam Carpenter MD Primary Care Provider [phone] Reason for Visit * Reason Comments Medication Refill Encounter Details Date Type Department Care Team (Late st Contact Info) Description 08/22/2021 Refill [facility] - Family Medicine [facility] [address] [place] [id number] Fam Carpenter MD [address] [place] [address] Medication Refill Social History Tobacco Use Types [...] encounter Miscellaneous Notes * Telephone Encounter - Amanda Garcia RN - 08/23/2021 4:27 PM CDT Medication failed the protocol, provider to review and approve the medication order if appropriate. Requested Prescriptions Pending Prescriptions Disp Refills levETIRAcetam (KEPPRA) 500 MG Tablet [Pharmacy Med Name: levETIRAcetam 500 MG Oral Tablet] 60 Tablet 0 Sig: Take 1 tablet by mouth twice daily Not Delegated - Anticonvulsants Excluding Benzodiazepines Protocol Failed - 08/22/2021 9:26 AM Failed - This refill cannot be [...] documented as of this encounter Care Teams Collections Associate Relationship Specialty Start Date End Date Fam Carpenter MD PCP - General Family Medicine 10/25/19 10/05/21 documented as of this encounter
--- OUTSIDE RECORDS SUMMARY | 2025-01-03 12:31 | XMS_ITS | Encounter Summary ---
Author Organization [facility] Address [address] [place] [address] Phone Care Team Providers Care Payment Processor Name Role Phone aFm Carpenter MD Primary Care Provider [phone] Reason for Visit * Reason Comments Medication Refill Encounter Details Date Type Department Care Team (Late st Contact Info) Description 01/15/2020 Refill [facility] - Family Medicine [facility] [address] [place] [address] Fam Carpenter MD [address] [place] [address] Medication Refill Social History Tobacco Use Types Packs/Day Years Used Date Smoking Tobacco: Former Cigarettes Smokeless Tobacco: Never Alcohol Use Standard Drinks/Week Comments Yes 0 (1 standard drink = 0.6 oz pur e alcohol) occasional PHQ-2 Answer Date Recorded Total Score - Questions 1-9 0 08/0 09/2019 Comments No Sex and Gender Information Value Date Recorded Sex Assigned at Not on file Legal Sex Female 11:27 PM CDT Gender Identity Not on file Sexual Orientation Not on file COVID-19 Exposure Response Date Recorded In the last month, have you been in contact with someone who was confirmed or suspected to have Coronavirus / COVID-19? No / Unsure 12/25/2019 9:50 AM CDT documented as of this encounter Miscellaneous Notes * Telephone Encounter - Ana Maria Early RN - 01/15/2020 9:[address] Carpenter, this was not ordered at a full 30 days supply, do you want to change the quantity? Last Rx 12/25/19 #60 documented in this encounter Plan of Treatment Not on file documented as of this encounter Visit Diagnoses Not on filedocumented in this encounter Additional Health Concerns Assessment Noted Time PHQ-9 Depression Total Score: 0 10/25/19 8:00 AM CDT documented as of this encounter Care Teams Payment Processor Relationship Specialty Start Date End Date Fam Carpenter MD PCP - General Family Medicine 10/25/19 10/05/21 documented as of this encounter
--- OUTSIDE RECORDS SUMMARY | 2025-01-03 12:31 | XMS_ITS | Encounter Summary ---
Author Organization [facility] Address [address] [place] [address] Phone Care Team Providers Care Leather Piece Inspector Name Role Phone Unavailable Primary Care Provider Unavailabl e Reason for Visit * Reason Comments Medication Refill Encounter Details Date Type Department Care Team (Late st Contact Info) Description 12/31/2021 Refill [facility] Medicine [facility] [address] [place] [address] Fam Carpenter MD [address] [place] [address] Medication Refill Social History Tobacco Use Types [...] on file documented as of this encounter Plan of Treatment Not on file documented as of this encounter Visit Diagnoses Diagnosis Nonintractable epilepsy without status epilepticus, unspecified epilepsy type documented in this encounter Additional Health Concerns Assessment Noted Time PHQ-9 Depression Total Score: 0 10/25/19 20 8:00 AM CDT documented as of this encounter
--- NOTE | 2025-01-03 12:50 | ED.EXTPRO ---
HPI - Extremity Problem General Chief complaint: Extremity Problem,Nontraumatic Stated complaint: Left Ankle Pain/Swelling Time Seen by Provider: 01/03/25 12:29 Source: patient and RN notes reviewed Mode of arrival: ambulatory Limitations: no limitations History of Present Illness HPI Narrative: Patient presents today complaining of pain to her left garcia x3 days with swelling that has been waxing and waning since onset 3 days ago as well. A few weeks ago patient started walking for exercise and was sedentary prior to this except for walking at work in a [employer]. She is walking 4 miles for exercise. Pain in her garcia increases with flexion and extension of the ankle. She has been taking Tylenol and ibuprofen with some improvement. When the ankle swells her pain is worse, and the swelling is worse after being at work. The swelling improves with rest. Patient states today her right garcia has started to become painful slightly. Related Data Home Medications ?Medication ?Instructions ?Recorded ?Confirmed ?Last Taken ?Type norethindrone 1 mg-ethinyl 1 tablet PO DAILY 02/03/23 02/03/23 Unknown History estradiol 10 mcg (24)-iron 10 mcg(2) tablet (Lo Loestrin Fe) Allergies Allergy/AdvReac Type Severity Reaction Status Date / Time No Known Allergies Allergy Verified 01/03/25 12:01 COUNTS INCLUDE 234 BEDS AT THE [facility] Comments At time of signature, I have reviewed and agree with nursing past medical, surgical, social and family history unless otherwise noted. Please see nursing chart for further information. There is no relevant family history pertinent to the presenting complaint Exam Narrative: GENERAL: Well-appearing, well-nourished, and in no acute distress. HEAD: Normocephalic, atraumatic. EYES: EOMI. No redness or drainage. Conjunctivae normal. ENT: Mucous membranes pink and moist. NECK: Normal AROM. CHEST: No respiratory distress. EXTREMITIES: Left leg: Tenderness to the anterior lower leg. No calf tenderness, redness, or swelling. Very mild swelling about the ankle. No tenderness about the ankle or foot. Distal sensation intact. Capillary refill normal. Pedal pulse normal. Full range of motion of the ankle with increased pain in the garcia with ankle movement. SKIN: Warm, dry, no rash. Capillary refill normal. Normal skin turgor. NEURO: No focal deficits. Alert and oriented x3. Gait steady. PSYCH: Normal affect. No signs of depression or anxiety. Course Course Level of Care: Express Care Visit Vital Signs Vital signs: Vital Signs Oxygen Delivery Room Air 01/03/25 11:51 Temperature 98.2 F 01/03/25 11:55 Pulse Rate 104 H 01/03/25 11:55 Respiratory Rate 16 01/03/25 11:55 Blood Pressure 124/62 01/03/25 11:55 Pulse Oximetry 98 01/03/25 11:55 Oxygen Delivery Room Air 01/03/25 11:55 Reviewed MDM - Extremity (Nontraumatic) MDM Narrative Medical decision making narrative: Patient presents today complaining of pain to her left garcia x3 days with swelling that has been waxing and waning since onset 3 days ago as well. A few weeks ago patient started walking for exercise and was sedentary prior to this except for walking at work in a [employer]. She is walking 4 miles for exercise. Pain in her garcia increases with flexion and extension of the ankle. She has been taking Tylenol and ibuprofen with some improvement. Upon exam, patient has tenderness to the left garcia and some very mild swelling about the ankle. No tenderness to the ankle. Pain in the garcia with flexion and extension of the ankle. Neurovascularly intact. X-ray of the tib-fib normal. Since the tenderness is of the entire garcia, likely patient has developed garcia splints due to advancing the distance of her exercise so quickly from sedentary. Recommend rest, ice, NSAIDs, more cushion in shoes. Follow up with PCP or ortho in 7-10 days if symptoms are not improving. Vital signs stable. Patient agrees with plan. Anticipatory guidance given. Differential Diagnosis Differential diagnosis: Likely cellulitis, superficial thrombophlebitis, lower extremity edema, deep vein thrombosis of lower extremity and other (Garcia splints, stress fracture) Imaging Data Radiologist's impression: Findings/impression: 1. No fracture or other acute abnormality identified. Critical Care Time Critical Care Time Critical Care Time: No Discharge Plan Discharge Clinical Impression: Garcia splint of left lower extremity Qualifiers: Encounter type: initial encounter Qualified Code(s): S86.892A - Other injury of other muscle(s) and tendon(s) at lower leg level, left leg, initial encounter Patient Disposition: Home Condition: Stable Additional Instructions: Your x-ray is negative for anything acute. Your symptoms are likely due to garcia splints. Please decrease the mileage of your exercise while you are experiencing pain then slowly work up to longer distances. Wear cautioned shoes. Continue anti-inflammatories such as Aleve or ibuprofen for discomfort. Elevate and ice your leg. Follow-up with your PCP or orthopedics in 7-10 days if symptoms are not improving. Patient Language: Portuguese Prescriptions: No Action Lo Loestrin Fe 1 mg-10 mcg (24)/10 mcg (2) tablet 1 tablet PO DAILY ondansetron 4 mg tablet,disintegrating 4 mg PO Q6H PRN (Reason: nausea and vomiting) 3 Days Qty: 12 0RF Follow-up/Referrals: Brenonn Saha MD [Physician, Orthopedics] PHYSICIAN,JIG AND FIXTURE BUILDER APPRENTICE [Primary Care Provider, Internal Medicine] Time of Disposition: 13:05
== END 2025-01-03 13:08 | disposition home or self-care (01) ==
PROVIDERS: Emergency Provider Nurse Practitioner
DX: S86.892A Other injury of other muscle(s) and tendon(s) at lower leg level, left leg, initial encounter (principal); X58.XXXA Exposure to other specified factors, initial encounter
CPT/HCPCS: 73590; 99213; G0463